=== PATIENT | female | born 1960 | race Caucasian/White ===

== ENCOUNTER 2017-10-21 00:57 | Emergency (ER) | payer MEDICAID ==
[~2017-10-21] VITALS: Ht 124.5 cm; Wt 50.0 kg
[~2017-10-21 00:57] MED LIST: ALBU2TAB4 PO; ALBU8HFA PO; ATOR10TA87 PO; BUDE10.22 INH; CYCL-1 PO; EST1T PO; LISI40TA4 PO; LORA0.5T PO; MAGN400C PO; MELO-100 PO; OXYC15TA88 PO
[2017-10-21 01:25] LABS: BASOPHILS # (AUTO) 0.1 X10'3 (0-0.2); EOSINOPHILS # (AUTO) 0.1 X10'3 (0-0.9); EOSINOPHILS % (AUTO) 0.8 % (0-6); HEMATOCRIT 40.5 % (35.0-45.0); HEMOGLOBIN 13.5 g/dl (12.0-16.0); LYMPHOCYTES # (AUTO) 2.9 X10'3 (1.1-4.8); LYMPHOCYTES % (AUTO) 39.4 % (21-51); MEAN CORPUSCULAR HGB CONC 33.3 % (33.0-36.5); MEAN CORPUSCULAR VOLUME 90.2 FL (78-98); MEAN PLATELET VOLUME 8.1 FL (7.4-10.4); MONOCYTES # (AUTO) 0.5 X10'3 (0-0.9); MONOCYTES % (AUTO) 7.2 % (2-12); NEUTROPHILS # (AUTO) 3.8 X10'3 (1.8-7.7); NEUTROPHILS % (AUTO) 51.6 % (42-75); PLATELET COUNT 224 X10'3 (140-440); RED BLOOD COUNT 4.49 X10'6 (4.20-5.60); WHITE BLOOD COUNT 7.4 X10'3 (4.5-11.0)
[2017-10-21 01:36] LABS: INR 0.9 INR; PARTIAL THROMBOPLASTIN TIME 23 SECONDS (22-32); PROTHROMBIN TIME 9.7 SECONDS (9.0-12.0)
[2017-10-21 01:39] LABS: ALANINE AMINOTRANSFERASE 34 U/L (12-78); ALBUMIN 3.5 G/DL (3.4-5.0); ALBUMIN/GLOBULIN RATIO 1.1 (1.1-1.5); ALKALINE PHOSPHATASE 57 IU/L (46-116); ANION GAP 7 (8-16); ASPARTATE AMINO TRANSFERASE 31 U/L (10-37); BILIRUBIN,TOTAL 0.3 MG/DL (0.1-1.0); BLOOD UREA NITROGEN 15 MG/DL (7-18); BUN/CREATININE RATIO 18.1 (6.6-38.0); CALCIUM 9.5 MG/DL (8.5-10.1); CHLORIDE 103 MMOL/L (99-107); CREATININE 0.83 MG/DL (0.40-0.90); GLUCOSE 110 MG/DL (70-104); POTASSIUM 3.9 MMOL/L (3.5-5.1); SODIUM 141 MMOL/L (135-145); TOTAL CARBON DIOXIDE 31.4 MMOL/L (24-32); TOTAL PROTEIN 6.7 G/DL (6.4-8.2); eGFR 71 ML/MIN
[2017-10-21 02:40] VITALS: BP 121/80
== END 2017-10-21 02:41 | disposition home or self-care (01) ==
LOC: ER 00:57
DX: R06.02 Shortness of breath (principal); J44.9 Chronic obstructive pulmonary disease, unspecified; E78.00 Pure hypercholesterolemia, unspecified; I10 Essential (primary) hypertension; Z90.49 Acquired absence of other specified parts of digestive tract; Z90.710 Acquired absence of both cervix and uterus; Z88.2 Allergy status to sulfonamides; Z79.899 Other long term (current) drug therapy; Z60.2 Problems related to living alone; Z59.0 Homelessness; Z56.0 Unemployment, unspecified
CPT/HCPCS: 36415; 71045; 80053; 84484; 85025; 85610; 85730; 93005; 99285

== ENCOUNTER 2018-10-13 03:03 | Inpatient (IN) | payer MEDICAID ==
[~2018-10-13] VITALS: Ht 154.9 cm; Wt 35.0 kg
[2018-10-13 03:47] LABS: BASOPHILS % (AUTO) 0.5 % (0-1); EOSINOPHILS # (AUTO) 0.1 X10'3 (0-0.9); EOSINOPHILS % (AUTO) 1.2 % (0-6); HEMOGLOBIN 14.6 g/dl (12.0-16.0); LYMPHOCYTES # (AUTO) 2.9 X10'3 (1.1-4.8); LYMPHOCYTES % (AUTO) 33.5 % (21-51); MEAN CORPUSCULAR HEMOGLOBIN 29.4 PG (27.0-31.0); MEAN CORPUSCULAR HGB CONC 33.2 g/dL (33.0-36.5); MEAN CORPUSCULAR VOLUME 88.6 FL (78-98); MEAN PLATELET VOLUME 7.7 FL (7.4-10.4); MONOCYTES # (AUTO) 0.8 X10'3 (0-0.9); MONOCYTES % (AUTO) 9.5 % (2-12); NEUTROPHILS # (AUTO) 4.8 X10'3 (1.8-7.7); NEUTROPHILS % (AUTO) 55.3 % (42-75); PLATELET COUNT 256 X10'3 (140-440); RED BLOOD COUNT 4.96 X10'6 (4.20-5.60); RED CELL DISTRIBUTION WIDTH 14.9 % (11.5-14.5); WHITE BLOOD COUNT 8.6 X10'3 (4.5-11.0)
[2018-10-13 03:53] LABS: PARTIAL THROMBOPLASTIN TIME 23 SECONDS (22-32)
[2018-10-13] MEDS ORDERED: albuterol 2.5 MG/3 ML nebule CONTNEB PRN (03:55)
[2018-10-13] MEDS ORDERED: magnesium 2GM in 50ml NS 50 ML IV ONE (03:55)
[2018-10-13] MEDS ORDERED: methylPREDNISolone sod succ 125mg/2ml vial IV ONE (03:55)
[2018-10-13 03:58] LABS: ALANINE AMINOTRANSFERASE 59 U/L (12-78); ALBUMIN 3.7 G/DL (3.4-5.0); ALBUMIN/GLOBULIN RATIO 1.1 (1.1-1.5); ALKALINE PHOSPHATASE 55 IU/L (46-116); ANION GAP 6 (8-16); ASPARTATE AMINO TRANSFERASE 63 U/L (10-37); BILIRUBIN,TOTAL 0.3 MG/DL (0.1-1.0); BLOOD UREA NITROGEN 14 MG/DL (7-18); CALCIUM 9.3 MG/DL (8.5-10.1); CHLORIDE 110 MMOL/L (99-107); CREATININE 1.17 MG/DL (0.40-0.90); GLUCOSE 92 MG/DL (70-104); POTASSIUM 4.2 MMOL/L (3.5-5.1); SODIUM 148 MMOL/L (135-145); TOTAL CARBON DIOXIDE 31.9 MMOL/L (24-32); TOTAL PROTEIN 7.1 G/DL (6.4-8.2); eGFR 47 ML/MIN
[2018-10-13 04:36] LABS: ABG BASE EXCESS 0.7 mmol/L (-2.0-3.0); ABG HCO3 27.4 mmol/L (22.0-26.0); ABG OXYGEN SATURATION 92.4 % (95-98); ABG PH (T) 7.346 (7.350-7.450); ABG PO2 (T) 65.5 mmHg (83-108); FCOHb 3.6 % (0.5-1.5); FLOW 2 L/min; FMetHb 0.1 % (0.3-1.12); PATIENT TEMPERATURE 36.6; RESPIRATORY RATE (OBSERVED) 20 b/min; TOTAL HEMOGLOBIN 14.3 G/dl (12.0-16.0)
[2018-10-13] MEDS ORDERED: magnesium hydroxide 30ml (MOM) UD suspension PO PRN (05:30)
[2018-10-13] MEDS ORDERED: magnesium Cl slow-release 64mg tablet PO PRN (05:30)
[2018-10-13] MEDS ORDERED: magnesium 4gm in 100ml NS 100 ML IV PRN (05:30)
[2018-10-13] MEDS ORDERED: magnesium 2GM in 50ml NS 50 ML IV PRN (05:30)
[2018-10-13] MEDS ORDERED: potassium CL 10mEq/100ml bag 100 ML IV PRN ×2 (05:30)
[2018-10-13] MEDS ORDERED: mag hydrox/Alum hydrox/simeth 30ml oral suspension PO PRN (05:30)
[2018-10-13] MEDS ORDERED: acetaminophen 325mg tablet PO PRN ×2 (05:30)
[2018-10-13] MEDS ORDERED: potassium Cl 20 mEq SR tablet PO PRN ×2 (05:30)
[2018-10-13] MEDS ORDERED: ondansetron/PF 4mg/2ml inj IV PRN (05:30)
[2018-10-13] MEDS ORDERED: ipratropium/albuterol 3ml nebule NEB PRN (06:05)
[2018-10-13] MEDS ORDERED: cyclobenzaprine 10mg tablet PO PRN (06:05)
[2018-10-13] MEDS ORDERED: naproxen 375mg tablet PO PRN (06:05)
--- NOTE | 2018-10-13 06:31 | NUR ---
ATTEMPTED TO CALL REPORT, RN UNAVAILABLE AT THIS TIME. WILL CALL BACK.
--- NOTE | 2018-10-13 07:00 | NUR ---
Patient in room [facility] 350. I have received report from Toribio GALLO and had the opportunity to ask questions and assume patient care.
[2018-10-13] MEDS: pantoprazole 40mg Tablet.DR PO SCH (07:30)
[2018-10-13] MEDS: ipratropium/albuterol 3ml nebule NEB SCH ×5 (07:34→23:56)
[2018-10-13] MEDS ORDERED: oxyCODONE IR 5mg (immed. release) tablet PO SCH (08:00)
[2018-10-13] MEDS ORDERED: lisinopril 20mg tablet PO SCH (08:00)
[2018-10-13] MEDS: K and/or MAG REPLACEMENT MC SCH (08:00)
[2018-10-13] MEDS: enoxaparin 30mg/0.3ml syringe SQ SCH (08:00)
[2018-10-13 08:04] VITALS: BP 139/79
[2018-10-13] MEDS: methylPREDNISolone sod succ/PF 40mg inj. IV SCH ×2 (09:32→20:20)
[2018-10-13] MEDS: azithromycin/NS 500mg/250ml 250 ML IV SCH (09:33)
[2018-10-13] MEDS ORDERED: PRED10TA23 PO (10:00)
[2018-10-13] MEDS ORDERED: UMEC1DIS PO (10:00)
[2018-10-13] MEDS ORDERED: ALEN35TA21 PO (10:00)
[2018-10-13] MEDS ORDERED: CHOL10002 PO (10:00)
[2018-10-13] MEDS ORDERED: ALBU2.5V12 NEB (10:00)
[2018-10-13] MEDS ORDERED: ALBU18HF2 INH (10:00)
[2018-10-13] MEDS ORDERED: BACL10TA PO (10:00)
[2018-10-13] MEDS ORDERED: NABU500T2 PO (10:00)
[2018-10-13] MEDS ORDERED: LISI10TA4 PO (10:00)
[2018-10-13] MEDS ORDERED: ESTR1TAB19 PO (10:00)
[2018-10-13 11:00] VITALS: BP 97/54
[2018-10-13] MEDS ORDERED: pneumococcal 23-VAL P-sac vacc 25 mcg/0.5ml vial IMVAC ONE (14:00)
[2018-10-13] MEDS: CefTRIAXone/D5W-Rocephin 1gm 50 ML IV SCH (14:21)
--- NOTE | 2018-10-13 18:01 | NUR ---
Malnutrition consult: Pt seen at bedside reports UBW 98 lbs although per documented wt hx using scaled weights only from September 2014 and July 2011 patient's wt ranges from 81-92 lbs. Pt reports 20 lb wt loss in 2 years, this is non-significant wt loss of 21% in two years. Pt currently on heart healthy diet meeting nutrient needs with 100% PO intake however pt reports difficulty preparing meals BUTTERMAKER CONTINUOUS CHURN d/t decreased energy r/t SOB, likely suboptimal PO intake BUTTERMAKER CONTINUOUS CHURN. Pt states she is in the process of reaching out to someone to help prepare meals at home. Pt with visible fat and muscle wasting meeting criteria for malnutrition, notified. Pt admit with COPD exacerbation and acute on chronic respiratory failure. Pt requested education and was provided with written and verbal COPD nutrition therapy education with RD contact information. Pt with food requests that were d/w dietary, see below. Pt denies food allergies and reports some difficulty chewing however denies need for texture modification at this time. LBM 10/12 per pt. Will continue to follow. Recommendations: 1) Continue with heart healthy diet 2) Double protein TID; ketchup x 2 and regular yogurt with breakfast; cottage cheese at lunch; pudding with dinner 3) Routine bowel care 4) Wt per rx Addendum: 10/13/18 at [address] Amended: Links added.
--- NOTE | 2018-10-13 18:30 | NUR ---
Problems reprioritized. Patient report given, questions answered & plan of care reviewed with Raad GALLO.
[2018-10-13 20:00] VITALS: BP 108/62
[2018-10-13] MEDS ORDERED: atorvastatin 10mg tablet PO SCH (21:00)
[2018-10-14] VITALS: BP 106/74
--- NOTE | 2018-10-14 02:31 | NUR ---
Patient in room [facility] 350. I have received report from Jhoan GALLO and had the opportunity to ask questions and assume patient care.
[2018-10-14] MEDS: ipratropium/albuterol 3ml nebule NEB SCH ×6 (03:46→23:30)
[2018-10-14 06:14] LABS: BASOPHILS % (AUTO) 0.2 % (0-1); EOSINOPHILS % (AUTO) 0 % (0-6); HEMATOCRIT 40.3 % (35.0-45.0); HEMOGLOBIN 13.2 g/dl (12.0-16.0); LYMPHOCYTES # (AUTO) 0.8 X10'3 (1.1-4.8); LYMPHOCYTES % (AUTO) 6.5 % (21-51); MEAN CORPUSCULAR HEMOGLOBIN 29.2 PG (27.0-31.0); MEAN CORPUSCULAR HGB CONC 32.7 g/dL (33.0-36.5); MEAN CORPUSCULAR VOLUME 89.1 FL (78-98); MEAN PLATELET VOLUME 8.3 FL (7.4-10.4); MONOCYTES # (AUTO) 0.7 X10'3 (0-0.9); MONOCYTES % (AUTO) 5.4 % (2-12); NEUTROPHILS # (AUTO) 10.8 X10'3 (1.8-7.7); NEUTROPHILS % (AUTO) 87.9 % (42-75); PLATELET COUNT 236 X10'3 (140-440); RED BLOOD COUNT 4.52 X10'6 (4.20-5.60); RED CELL DISTRIBUTION WIDTH 15.1 % (11.5-14.5); WHITE BLOOD COUNT 12.3 X10'3 (4.5-11.0)
--- NOTE | 2018-10-14 06:25 | NUR ---
Problems reprioritized. Patient report given, questions answered & plan of care reviewed with Jhoan RN.
[2018-10-14 06:30] LABS: ALBUMIN 3.2 G/DL (3.4-5.0); ANION GAP 8 (8-16); BLOOD UREA NITROGEN 15 MG/DL (7-18); BUN/CREATININE RATIO 15.5 (6.6-38.0); CALCIUM 9.1 MG/DL (8.5-10.1); CHLORIDE 104 MMOL/L (99-107); CREATININE 0.97 MG/DL (0.40-0.90); GLUCOSE 156 MG/DL (70-104); MAGNESIUM 1.7 MG/DL (1.5-2.4); POTASSIUM 4.5 MMOL/L (3.5-5.1); SODIUM 139 MMOL/L (135-145); TOTAL CARBON DIOXIDE 27.2 MMOL/L (24-32); eGFR 59 ML/MIN
--- NOTE | 2018-10-14 06:31 | NUR ---
Patient in room [facility] 350. I have received report from Raad GALLO and had the opportunity to ask questions and assume patient care.
[2018-10-14] MEDS: pantoprazole 40mg Tablet.DR PO SCH (07:30)
[2018-10-14] MEDS: K and/or MAG REPLACEMENT MC SCH (08:00)
[2018-10-14] MEDS: vitamin D (cholecalciferol) 1,000 unit tablet PO SCH (08:18)
[2018-10-14] MEDS: estradiol 1mg tablet PO SCH (08:19)
[2018-10-14] MEDS: lisinopril 10 MG tablet PO SCH (08:19)
[2018-10-14] MEDS: methylPREDNISolone sod succ/PF 40mg inj. IV SCH ×2 (08:20→19:26)
[2018-10-14] MEDS: azithromycin/NS 500mg/250ml 250 ML IV SCH (08:22)
[2018-10-14] MEDS: enoxaparin 30mg/0.3ml syringe SQ SCH (08:31)
[2018-10-14 11:00] VITALS: BP 118/80
[2018-10-14] MEDS: CefTRIAXone/D5W-Rocephin 1gm 50 ML IV SCH (13:28)
--- NOTE | 2018-10-14 18:20 | NUR ---
Patient in room [facility] 350. I have received report from Jhoan GALLO and had the opportunity to ask questions and assume patient care.
--- NOTE | 2018-10-14 18:30 | NUR ---
Problems reprioritized. Patient report given, questions answered & plan of care reviewed with JOSE LUIS GALLO.
[2018-10-14] MEDS: lactobacillus rhamnosus 10,000 MMU CELLS/CAPSULE PO SCH (19:26)
[2018-10-14] MEDS: acetaminophen w/codeine (30MG) #3 tablet PO PRN (19:38)
[2018-10-14 20:00] VITALS: BP 110/69
[2018-10-15] VITALS: BP 116/77
[2018-10-15] MEDS: ipratropium/albuterol 3ml nebule NEB SCH ×4 (03:42→14:40)
[2018-10-15 06:04] LABS: BASOPHILS % (AUTO) 0.2 % (0-1); EOSINOPHILS % (AUTO) 0 % (0-6); HEMATOCRIT 41.9 % (35.0-45.0); HEMOGLOBIN 13.9 g/dl (12.0-16.0); LYMPHOCYTES # (AUTO) 0.8 X10'3 (1.1-4.8); LYMPHOCYTES % (AUTO) 5.8 % (21-51); MEAN CORPUSCULAR HEMOGLOBIN 29.5 PG (27.0-31.0); MEAN CORPUSCULAR HGB CONC 33.2 g/dL (33.0-36.5); MEAN CORPUSCULAR VOLUME 88.8 FL (78-98); MEAN PLATELET VOLUME 8.8 FL (7.4-10.4); MONOCYTES # (AUTO) 0.6 X10'3 (0-0.9); MONOCYTES % (AUTO) 4.3 % (2-12); NEUTROPHILS # (AUTO) 12.1 X10'3 (1.8-7.7); NEUTROPHILS % (AUTO) 89.7 % (42-75); PLATELET COUNT 254 X10'3 (140-440); RED BLOOD COUNT 4.72 X10'6 (4.20-5.60); RED CELL DISTRIBUTION WIDTH 14.9 % (11.5-14.5); WHITE BLOOD COUNT 13.5 X10'3 (4.5-11.0)
[2018-10-15 06:10] LABS: ALBUMIN 3.4 G/DL (3.4-5.0); ANION GAP 11 (8-16); BLOOD UREA NITROGEN 20 MG/DL (7-18); BUN/CREATININE RATIO 21.3 (6.6-38.0); CALCIUM 9.8 MG/DL (8.5-10.1); CHLORIDE 102 MMOL/L (99-107); CREATININE 0.94 MG/DL (0.40-0.90); GLUCOSE 130 MG/DL (70-104); MAGNESIUM 1.7 MG/DL (1.5-2.4); POTASSIUM 4.2 MMOL/L (3.5-5.1); SODIUM 141 MMOL/L (135-145); TOTAL CARBON DIOXIDE 27.7 MMOL/L (24-32); eGFR 61 ML/MIN
[2018-10-15] MEDS: acetaminophen w/codeine (30MG) #3 tablet PO PRN ×2 (06:24→12:34)
--- NOTE | 2018-10-15 06:26 | NUR ---
Patient in room [facility] 350. I have received report from SABINO Shankar and had the opportunity to ask questions and assume patient care.
--- NOTE | 2018-10-15 06:42 | NUR ---
Problems reprioritized. Patient report given, questions answered & plan of care reviewed with Stefanie GALLO.
[2018-10-15 07:21] VITALS: BP 127/92
[2018-10-15] MEDS: pantoprazole 40mg Tablet.DR PO SCH (07:30)
[2018-10-15] MEDS ORDERED: azithromycin 250mg tablet PO SCH (08:00)
[2018-10-15] MEDS: K and/or MAG REPLACEMENT MC SCH (08:00)
[2018-10-15] MEDS: methylPREDNISolone sod succ/PF 40mg inj. IV SCH (08:44)
[2018-10-15] MEDS: lactobacillus rhamnosus 10,000 MMU CELLS/CAPSULE PO SCH (08:44)
[2018-10-15] MEDS: lisinopril 10 MG tablet PO SCH (08:48)
[2018-10-15] MEDS: vitamin D (cholecalciferol) 1,000 unit tablet PO SCH (08:48)
[2018-10-15] MEDS: estradiol 1mg tablet PO SCH (08:52)
[2018-10-15] MEDS: enoxaparin 30mg/0.3ml syringe SQ SCH (08:54)
[2018-10-15 11:00] VITALS: BP 130/88
[2018-10-15] MEDS ORDERED: CEFD300C3 PO (12:21)
[2018-10-15] MEDS: CefTRIAXone/D5W-Rocephin 1gm 50 ML IV SCH (13:39)
--- NOTE | 2018-10-16 15:20 | NUR ---
Pt d/c prior to RD visit for verbal malnutrition ed. Written malnutrition ed w/ RD contact information and ONS coupon mailed to pt home address. Addendum: 10/16/18 at [address] Amended: Links added.
== END 2018-10-15 16:15 | disposition home or self-care (01) | DRG 133 ==
LOC: ER 03:04 → SUR 3N 07:10 → CMPBEDREQ 07:34
PROVIDERS: ADMIT Hospitalist; ATTEND Hospitalist
PROC: 3E0234Z Introduction of Serum, Toxoid and Vaccine into Muscle, Percutaneous Approach (ICD-10-PCS; principal; 2018-10-13)
DX: J96.21 Acute and chronic respiratory failure with hypoxia (principal); N17.9 Acute kidney failure, unspecified; E87.0 Hyperosmolality and hypernatremia; J43.9 Emphysema, unspecified; Z99.81 Dependence on supplemental oxygen; E78.00 Pure hypercholesterolemia, unspecified; E78.5 Hyperlipidemia, unspecified; F17.200 Nicotine dependence, unspecified, uncomplicated; G89.29 Other chronic pain; M54.9 Dorsalgia, unspecified; F11.90 Opioid use, unspecified, uncomplicated; F41.9 Anxiety disorder, unspecified; Z60.2 Problems related to living alone; I10 Essential (primary) hypertension; Z59.0 Homelessness; Z87.11 Personal history of peptic ulcer disease; Z90.49 Acquired absence of other specified parts of digestive tract; Z90.710 Acquired absence of both cervix and uterus; Z23 Encounter for immunization; Z88.0 Allergy status to penicillin; Z98.51 Tubal ligation status; Z88.2 Allergy status to sulfonamides; Z79.899 Other long term (current) drug therapy; Z71.6 Tobacco abuse counseling
CPT/HCPCS: 36415; 36600; 71045; 80048; 80053; 82803; 83735; 84484; 85018; 85025; 85610; 85730; 87081; 90732; 93005; 94640; 94760; 96365; 96375; 99291; G0378; J0456; J0696; J1650; J2920; J2930; J3475

== ENCOUNTER 2018-11-28 06:28 | Inpatient (IN) | payer MEDICAID ==
[~2018-11-28] VITALS: Ht 154.9 cm; Wt 34.1 kg
[~2018-11-28 06:28] MED LIST changes: +ALBU18HF2 INH; +ALBU2.5V12 NEB; -ALBU2TAB4 PO; -ALBU8HFA PO; +ALEN35TA21 PO; -ATOR10TA87 PO; +BACL10TA PO; -BUDE10.22 INH; +CHOL10002 PO; -CYCL-1 PO; -EST1T PO; +ESTR1TAB19 PO; +LISI10TA4 PO; -LISI40TA4 PO; -LORA0.5T PO; -MAGN400C PO; -MELO-100 PO; +NABU500T2 PO; -OXYC15TA88 PO; +PRED10TA23 PO; +UMEC1DIS PO
[2018-11-28] MEDS ORDERED: methylPREDNISolone sod succ 125mg/2ml vial IV ONE ×2 (06:35→09:50)
[2018-11-28 07:30] LABS: BASOPHILS # (AUTO) 0.1 X10'3 (0-0.2); BASOPHILS % (AUTO) 0.6 % (0-1); EOSINOPHILS # (AUTO) 0.1 X10'3 (0-0.9); EOSINOPHILS % (AUTO) 1.2 % (0-6); HEMATOCRIT 42.7 % (35.0-45.0); HEMOGLOBIN 14.1 g/dl (12.0-16.0); LYMPHOCYTES # (AUTO) 3.3 X10'3 (1.1-4.8); LYMPHOCYTES % (AUTO) 27.4 % (21-51); MEAN CORPUSCULAR HEMOGLOBIN 29.9 PG (27.0-31.0); MEAN CORPUSCULAR HGB CONC 33.1 g/dL (33.0-36.5); MEAN CORPUSCULAR VOLUME 90.3 FL (78-98); MEAN PLATELET VOLUME 7.7 FL (7.4-10.4); MONOCYTES # (AUTO) 0.9 X10'3 (0-0.9); MONOCYTES % (AUTO) 7.2 % (2-12); NEUTROPHILS # (AUTO) 7.7 X10'3 (1.8-7.7); NEUTROPHILS % (AUTO) 63.6 % (42-75); PLATELET COUNT 255 X10'3 (140-440); RED BLOOD COUNT 4.73 X10'6 (4.20-5.60); WHITE BLOOD COUNT 12.1 X10'3 (4.5-11.0)
[2018-11-28 07:44] LABS: PARTIAL THROMBOPLASTIN TIME 22 SECONDS (22-32)
[2018-11-28 07:47] LABS: ALANINE AMINOTRANSFERASE 42 U/L (12-78); ALBUMIN 3.6 G/DL (3.4-5.0); ALKALINE PHOSPHATASE 58 IU/L (46-116); ANION GAP 6 (8-16); ASPARTATE AMINO TRANSFERASE 43 U/L (10-37); BILIRUBIN,TOTAL 0.3 MG/DL (0.1-1.0); BLOOD UREA NITROGEN 14 MG/DL (7-18); BUN/CREATININE RATIO 15.1 (6.6-38.0); CALCIUM 9.3 MG/DL (8.5-10.1); CHLORIDE 106 MMOL/L (99-107); CREATININE 0.93 MG/DL (0.40-0.90); GLUCOSE 100 MG/DL (70-104); POTASSIUM 3.7 MMOL/L (3.5-5.1); SODIUM 142 MMOL/L (135-145); TOTAL CARBON DIOXIDE 29.6 MMOL/L (24-32); TOTAL PROTEIN 7.1 G/DL (6.4-8.2); eGFR 62 ML/MIN
--- NOTE | 2018-11-28 08:48 | NUR ---
pt walked 250 ft on 2 liters of o2. pt dropped from 96% to 94% half way and the n by the time we got back to the room she was breathing heavy at 91% on [address] paulson
[2018-11-28] MEDS ORDERED: levoFLOXACIN 750MG TABLET PO ONE (09:05)
[2018-11-28] MEDS ORDERED: HYDROcodone/acetaminophen 5mg/325mg tablet PO PRN (09:10)
[2018-11-28] MEDS ORDERED: acetaminophen 325mg tablet PO PRN (09:10)
[2018-11-28] MEDS ORDERED: morphine 2 MG/ML inj. syringe IV PRN ×2 (09:10)
[2018-11-28] MEDS ORDERED: ondansetron/PF 4mg/2ml inj IV PRN (09:10)
[2018-11-28] MEDS ORDERED: magnesium hydroxide 30ml (MOM) UD suspension PO PRN (09:10)
[2018-11-28] MEDS: levoFLOXACIN-Levaquin 750MG/D5 150 ML IV SCH (10:15)
--- NOTE | 2018-11-28 10:59 | NUR ---
Patient in room ED 14. I have received report from SABINO Contreras in ER and had the opportunity to ask questions, awaiting patient arrival.
--- NOTE | 2018-11-28 11:25 | NUR ---
Pt arrived to floor. HR in 130s, pt requesting breathing treatment. Respiratory team paged for 1100 treatment to be given ANNAMARIE.
[2018-11-28 11:29] VITALS: BP 132/94
[2018-11-28] MEDS: ipratropium/albuterol 3ml nebule NEB SCH ×4 (11:35→23:35)
[2018-11-28] MEDS ORDERED: albuterol 2.5 MG/3 ML nebule NEB PRN (12:00)
[2018-11-28] MEDS: oxyCODONE IR 5mg (immed. release) tablet PO PRN ×2 (13:58→21:18)
[2018-11-28] MEDS ORDERED: AZIT250T83 PO (15:54)
[2018-11-28] MEDS ORDERED: NALO4SPR (15:54)
[2018-11-28] MEDS ORDERED: BUPR1PAT TOP (15:54)
[2018-11-28] MEDS ORDERED: FLUT1BLS4 PO (15:54)
[2018-11-28] MEDS: methylPREDNISolone sod succ 125mg/2ml vial IV SCH ×2 (16:24→23:37)
[2018-11-28] MEDS ORDERED: baclofen 10mg tablet PO PRN (18:20)
--- NOTE | 2018-11-28 18:20 | NUR ---
Patient in room [facility] 345. I have received report from Adele GALLO and had the opportunity to ask questions and assume patient care.
--- NOTE | 2018-11-28 18:29 | NUR ---
Problems reprioritized. Patient report given, questions answered & plan of care reviewed with SABINO Almazan.
[2018-11-28 19:00] VITALS: BP 125/72
[2018-11-28] MEDS: NABUMETONE PO SCH (19:20)
[2018-11-28] MEDS ORDERED: clonazePAM 0.5mg tablet PO SCH (20:00)
--- NOTE | 2018-11-28 21:04 | NUR ---
Patient states that she has never taken klonopin and does not want to. Pt. states she has taken ativan before. New order obtained to dc klonopin and to order ativan 1mg q6hr prn sob/anxiety in place of.
[2018-11-28] MEDS: lactobacillus rhamnosus 10,000 MMU CELLS/CAPSULE PO SCH (21:16)
[2018-11-28] MEDS: estradiol 1mg tablet PO SCH (21:17)
[2018-11-28] MEDS: vitamin D (cholecalciferol) 1,000 unit tablet PO SCH (21:17)
[2018-11-28] MEDS: LORazepam 1 MG tablet PO PRN (21:19)
[2018-11-29 00:33] VITALS: BP 104/63
[2018-11-29] MEDS: ipratropium/albuterol 3ml nebule NEB SCH ×6 (03:02→22:39)
[2018-11-29] MEDS: LORazepam 1 MG tablet PO PRN ×2 (03:23→16:29)
[2018-11-29 05:07] LABS: BASOPHILS % (AUTO) 0.1 % (0-1); EOSINOPHILS % (AUTO) 0 % (0-6); HEMATOCRIT 39.5 % (35.0-45.0); HEMOGLOBIN 13.3 g/dl (12.0-16.0); LYMPHOCYTES # (AUTO) 0.4 X10'3 (1.1-4.8); LYMPHOCYTES % (AUTO) 5.1 % (21-51); MEAN CORPUSCULAR HEMOGLOBIN 30.1 PG (27.0-31.0); MEAN CORPUSCULAR HGB CONC 33.6 g/dL (33.0-36.5); MEAN CORPUSCULAR VOLUME 89.7 FL (78-98); MEAN PLATELET VOLUME 8.2 FL (7.4-10.4); MONOCYTES # (AUTO) 0.1 X10'3 (0-0.9); MONOCYTES % (AUTO) 1.8 % (2-12); PLATELET COUNT 246 X10'3 (140-440); RED CELL DISTRIBUTION WIDTH 14.8 % (11.5-14.5); WHITE BLOOD COUNT 7.6 X10'3 (4.5-11.0)
[2018-11-29 05:24] LABS: ALBUMIN 3.4 G/DL (3.4-5.0); ANION GAP 8 (8-16); BLOOD UREA NITROGEN 18 MG/DL (7-18); BUN/CREATININE RATIO 14.8 (6.6-38.0); CALCIUM 9.5 MG/DL (8.5-10.1); CHLORIDE 102 MMOL/L (99-107); CREATININE 1.22 MG/DL (0.40-0.90); GLUCOSE 159 MG/DL (70-104); POTASSIUM 4.4 MMOL/L (3.5-5.1); SODIUM 139 MMOL/L (135-145); TOTAL CARBON DIOXIDE 29.2 MMOL/L (24-32); eGFR 45 ML/MIN
--- NOTE | 2018-11-29 07:03 | NUR ---
Problems reprioritized. Patient report given, questions answered & plan of care reviewed with Adele GALLO and Taylor GALLO.
[2018-11-29 07:30] VITALS: BP 120/65
[2018-11-29] MEDS: NABUMETONE PO SCH (08:00)
[2018-11-29] MEDS: lactobacillus rhamnosus 10,000 MMU CELLS/CAPSULE PO SCH ×2 (08:21→20:56)
[2018-11-29] MEDS: methylPREDNISolone sod succ 125mg/2ml vial IV SCH ×3 (08:21→23:49)
[2018-11-29] MEDS: levoFLOXACIN-Levaquin 750MG/D5 150 ML IV SCH (08:21)
[2018-11-29] MEDS: lisinopril 10 MG tablet PO SCH (08:22)
[2018-11-29] MEDS: oxyCODONE IR 5mg (immed. release) tablet PO PRN ×2 (08:25→20:56)
[2018-11-29] MEDS ORDERED: FLU VACC QS2019-20 36MOS UP/PF 60 MCG/0.5 ML SYRINGE IMVAC ONE (10:00)
[2018-11-29 11:00] VITALS: BP 114/76
--- NOTE | 2018-11-29 14:57 | NUR ---
Malnutrition consult: Pt seen at bedside reports UBW previously 98 lbs up until last year however UBW is now 72-78 lbs. Pt does not report any specific wt loss recently however states her weight has fluctuated over the last month. Patient's current wt is 75 lbs which is pt stated although pt recently admitted 10/13/18 with documented wt of 77 lbs which was obtained with standing scale. Pt endorses a vigorous appetite which is evident with documented 100% PO intake on regular diet exceeding nutrient needs. Pt with no edema, significant decrease in muscle strength, or visible fat/muscle wasting. Pt currently does not meet criteria for malnutrition. For satiety pt requesting double protein TID, regular yogurt TID, cottage cheese TID, coffee and iced tea TID, dessert BIDLD, and extra salt/pepper TID. All preferences d/w dietary. Pt states she has home services through [facility] however is in search for someone to help prepare meals as pt becomes SOB and loses energy to prepare meals, RD will consult SW for community resources. Pt provided with [facility] contact information. Will continue to follow. Addendum: 11/29/18 at [address] Amended: Links added.
--- NOTE | 2018-11-29 18:15 | NUR ---
Problems reprioritized. Patient report given, questions answered & plan of care reviewed with SABINO Almazan.
--- NOTE | 2018-11-29 18:25 | NUR ---
Patient in room [facility] 345. I have received report from Becky GALLO and had the opportunity to ask questions and assume patient care.
[2018-11-29 18:30] VITALS: BP 102/59
[2018-11-29] MEDS: vitamin D (cholecalciferol) 1,000 unit tablet PO SCH (20:56)
[2018-11-29] MEDS: estradiol 1mg tablet PO SCH (20:56)
[2018-11-29 23:00] VITALS: BP 103/60
[2018-11-29] MEDS: mag hydrox/Alum hydrox/simeth 30ml oral suspension PO PRN (23:57)
[2018-11-30] MEDS: ipratropium/albuterol 3ml nebule NEB SCH ×6 (03:01→22:41)
[2018-11-30 04:51] LABS: BASOPHILS % (AUTO) 0 % (0-1); EOSINOPHILS % (AUTO) 0 % (0-6); HEMATOCRIT 38.5 % (35.0-45.0); HEMOGLOBIN 12.7 g/dl (12.0-16.0); LYMPHOCYTES # (AUTO) 0.4 X10'3 (1.1-4.8); LYMPHOCYTES % (AUTO) 2.7 % (21-51); MEAN CORPUSCULAR HEMOGLOBIN 29.7 PG (27.0-31.0); MEAN CORPUSCULAR HGB CONC 33.1 g/dL (33.0-36.5); MEAN CORPUSCULAR VOLUME 89.8 FL (78-98); MEAN PLATELET VOLUME 8.1 FL (7.4-10.4); MONOCYTES # (AUTO) 0.3 X10'3 (0-0.9); NEUTROPHILS # (AUTO) 13.6 X10'3 (1.8-7.7); NEUTROPHILS % (AUTO) 95.3 % (42-75); PLATELET COUNT 249 X10'3 (140-440); RED BLOOD COUNT 4.28 X10'6 (4.20-5.60); RED CELL DISTRIBUTION WIDTH 14.8 % (11.5-14.5); WHITE BLOOD COUNT 14.2 X10'3 (4.5-11.0)
[2018-11-30 05:03] LABS: ALBUMIN 3.1 G/DL (3.4-5.0); ANION GAP 5 (8-16); BLOOD UREA NITROGEN 26 MG/DL (7-18); BUN/CREATININE RATIO 27.1 (6.6-38.0); CALCIUM 9.4 MG/DL (8.5-10.1); CHLORIDE 103 MMOL/L (99-107); CREATININE 0.96 MG/DL (0.40-0.90); GLUCOSE 133 MG/DL (70-104); POTASSIUM 4.5 MMOL/L (3.5-5.1); SODIUM 137 MMOL/L (135-145); TOTAL CARBON DIOXIDE 29.3 MMOL/L (24-32); eGFR 59 ML/MIN
--- NOTE | 2018-11-30 06:44 | NUR ---
Patient in room [facility] 345. I have received report from Norah GALLO and had the opportunity to ask questions and assume patient care.
--- NOTE | 2018-11-30 06:58 | NUR ---
Problems reprioritized. Patient report given, questions answered & plan of care reviewed with Austin GALLO.
[2018-11-30 07:00] VITALS: BP 128/69
[2018-11-30] MEDS: oxyCODONE IR 5mg (immed. release) tablet PO PRN ×2 (07:51→19:25)
[2018-11-30] MEDS: methylPREDNISolone sod succ 125mg/2ml vial IV SCH ×2 (07:51→16:33)
[2018-11-30] MEDS: lactobacillus rhamnosus 10,000 MMU CELLS/CAPSULE PO SCH ×2 (07:52→19:22)
[2018-11-30] MEDS: enoxaparin 30mg/0.3ml syringe SUBCUT SCH (07:52)
[2018-11-30] MEDS: lisinopril 10 MG tablet PO SCH (07:52)
[2018-11-30] MEDS: LORazepam 1 MG tablet PO PRN ×2 (08:37→16:38)
--- NOTE | 2018-11-30 08:37 | NUR ---
Patient states " I might be allergic to the heparin shot that was given to me (patient received Lovenox this am)!" When I asked the patient what reaction she had, she said to me that she was feeling "tightness in her throat and difficulty swallowing". Patient also claimed that previous dose of Lovenox caused her feeling of "spasm in her abdomen". Patient's lung sounds were clear upon auscultation, O2 sat was 95-96% on 2lpm/nc. I did not see any rashes or hives, patient denies itchiness too. 5-10 minutes after, patient stated she is short of breath, reassessment done - O2 sat 94-95% on 2lpm/nc, lung sounds remain clear. Heart rate was 120's, patient appears anxious. Ativan PO given to patient as indicated.
--- NOTE | 2018-11-30 09:44 | NUR ---
Patient reported feeling better after the dose of Ativan given to her. Physical therapist at bedside too.
[2018-11-30 11:00] VITALS: BP 145/87
[2018-11-30] MEDS ORDERED: levoFLOXACIN 750MG TABLET PO SCH (11:00)
[2018-11-30] MEDS: levoFLOXACIN 750MG TABLET PO SCH (13:05)
[2018-11-30] MEDS: mag hydrox/Alum hydrox/simeth 30ml oral suspension PO PRN ×2 (13:08→19:22)
--- NOTE | 2018-11-30 14:04 | NUR ---
Called Dr. Ribeiro about patient's request to use her own inhaler Trelegy. I also let him know about patient's concern about taking Lovenox. Dr. Ribeiro okayed to have patient use her own inhaler Trelegy and also stated that patient can refuse Lovenox injection if she wants too
--- NOTE | 2018-11-30 14:59 | NUR ---
Patient was found by Kemar GALLO right by the elevator getting ready to leave. Patient has no oxygen with her, she is oxygen dependent. Patient was wheeled down by the staff and immediately placed on oxygen at 2lpm/nc as she appears short of breath. When asked what happened, patient states "I just need to go out!" Patient was advised not to go outside as it is not allowed. Patient was informed that she can go for a walk within the third floor unit with a staff member as she will be needing help walking with portable oxygen with her. Patient claimed that she just wanted to get fresh air outside for like 10 minutes. Patient was told that we are not holding her against her will. Patient was told that if she leave the building it is considered AMA. Initially patient stated she will be willing to sign the AMA form but when explained to patient that she will be discharged from our unit, that she will be taking all the possible risks, and if she has medical issues she will probably be going back to ER, patient declined to sign the AMA form. She was obviously upset about unable to go outside the unit and/or building, she immediately turned her back, wheeled herself back to the room while she is connected to the portable oxygen. I had to immediately push the portable oxygen to her so the tank won't fall on the ground. I was talking to her if I can get her a gown as she removed her gown, patient was not answering my question and won't even looked at me. Charge nurse Yoko aware of this situation.
--- NOTE | 2018-11-30 18:26 | NUR ---
Patient in room [facility] 345. I have received report from Austin GALLO and had the opportunity to ask questions and assume patient care. Pt is sitting up in bed eating dinner with wash cloth on her head. Complains of mild headache. O2 on via N/C @2L. No signs of distress, will continue to monitor.
--- NOTE | 2018-11-30 18:55 | NUR ---
Problems reprioritized. Patient report given, questions answered & plan of care reviewed with Pricila GALLO.
[2018-11-30 19:13] VITALS: BP 133/81
[2018-11-30] MEDS: vitamin D (cholecalciferol) 1,000 unit tablet PO SCH (21:00)
[2018-11-30] MEDS: estradiol 1mg tablet PO SCH (22:33)
[2018-11-30] MEDS: docusate sod 100mg capsule PO SCH (22:33)
[2018-12-01] VITALS: BP 138/73
[2018-12-01] MEDS: methylPREDNISolone sod succ 125mg/2ml vial IV SCH ×3 (00:20→16:36)
[2018-12-01] MEDS: ipratropium/albuterol 3ml nebule NEB SCH ×6 (03:06→23:36)
[2018-12-01] MEDS: LORazepam 1 MG tablet PO PRN (04:33)
[2018-12-01] MEDS: oxyCODONE IR 5mg (immed. release) tablet PO PRN ×2 (04:33→22:14)
[2018-12-01 04:41] LABS: ALBUMIN 3.2 G/DL (3.4-5.0); ANION GAP 7 (8-16); BASOPHILS % (AUTO) 0.1 % (0-1); BLOOD UREA NITROGEN 28 MG/DL (7-18); BUN/CREATININE RATIO 30.1 (6.6-38.0); CHLORIDE 102 MMOL/L (99-107); CREATININE 0.93 MG/DL (0.40-0.90); EOSINOPHILS % (AUTO) 0 % (0-6); GLUCOSE 106 MG/DL (70-104); HEMATOCRIT 39.1 % (35.0-45.0); HEMOGLOBIN 13.1 g/dl (12.0-16.0); LYMPHOCYTES # (AUTO) 0.6 X10'3 (1.1-4.8); LYMPHOCYTES % (AUTO) 4.1 % (21-51); MEAN CORPUSCULAR HEMOGLOBIN 29.9 PG (27.0-31.0); MEAN CORPUSCULAR HGB CONC 33.5 g/dL (33.0-36.5); MEAN PLATELET VOLUME 8.3 FL (7.4-10.4); MONOCYTES # (AUTO) 0.7 X10'3 (0-0.9); MONOCYTES % (AUTO) 4.6 % (2-12); NEUTROPHILS # (AUTO) 12.9 X10'3 (1.8-7.7); NEUTROPHILS % (AUTO) 91.2 % (42-75); PLATELET COUNT 263 X10'3 (140-440); POTASSIUM 4.2 MMOL/L (3.5-5.1); RED BLOOD COUNT 4.39 X10'6 (4.20-5.60); RED CELL DISTRIBUTION WIDTH 15.3 % (11.5-14.5); SODIUM 137 MMOL/L (135-145); TOTAL CARBON DIOXIDE 28.4 MMOL/L (24-32); WHITE BLOOD COUNT 14.1 X10'3 (4.5-11.0); eGFR 62 ML/MIN
--- NOTE | 2018-12-01 06:05 | NUR ---
Patient in room [facility] 345. I have received report from SABINO Mcnulty and had the opportunity to ask questions and assume patient care.
[2018-12-01 06:30] VITALS: BP 141/89
--- NOTE | 2018-12-01 06:45 | NUR ---
Problems reprioritized. Patient report given, questions answered & plan of care reviewed with Jennifer RN.
[2018-12-01] MEDS ORDERED: furosemide 20 MG/2 ML vial IV ONE (08:50)
[2018-12-01] MEDS: lactobacillus rhamnosus 10,000 MMU CELLS/CAPSULE PO SCH ×2 (09:23→20:47)
[2018-12-01] MEDS: enoxaparin 30mg/0.3ml syringe SUBCUT SCH (09:23)
[2018-12-01] MEDS: docusate sod 100mg capsule PO SCH ×2 (09:23→20:47)
[2018-12-01] MEDS: lisinopril 10 MG tablet PO SCH (09:24)
[2018-12-01 11:00] VITALS: BP 139/98
--- NOTE | 2018-12-01 14:16 | NUR ---
Initial: Pt admit with COPD exacerbation. Pt feels that SOB has worsened per MD notes. Pt currently on regular diet documented with 100% PO intake throughout LOS with the exception of 50% PO intake 11/30. Pt also receiving extra food TID, likely meeting nutrient needs at this time. LBM 11/27, routine Colace was just started last night with MoM PRN first dose given today. No nutrition diagnosis at this time. Will continue to follow. Recommendations: 1) Continue with regular diet 2) Double protein TID, regular yogurt TID, cottage cheese TID, coffee and iced tea TID, dessert BIDLD, and extra salt/pepper TID 3) Routine bowel care 4) Wt per rx Addendum: 12/01/18 at [address] Amended: Links added.
--- NOTE | 2018-12-01 18:00 | NUR ---
Patient in room [facility] 345. I have received report from Jennifer GALLO and had the opportunity to ask questions and assume patient care.
--- NOTE | 2018-12-01 18:10 | NUR ---
Problems reprioritized. Patient report given, questions answered & plan of care reviewed with SABINO Shankar.
[2018-12-01 20:00] VITALS: BP 165/104
[2018-12-01] MEDS: vitamin D (cholecalciferol) 1,000 unit tablet PO SCH (20:48)
[2018-12-01] MEDS: furosemide 20 MG/2 ML vial IV SCH (20:48)
[2018-12-01] MEDS: estradiol 1mg tablet PO SCH (20:50)
[2018-12-02] VITALS: BP 171/95
[2018-12-02] MEDS: methylPREDNISolone sod succ 125mg/2ml vial IV SCH ×3 (00:09→16:44)
[2018-12-02 01:00] VITALS: BP 148/90
[2018-12-02] MEDS: ipratropium/albuterol 3ml nebule NEB SCH ×6 (03:40→23:00)
[2018-12-02] MEDS: oxyCODONE IR 5mg (immed. release) tablet PO PRN ×2 (05:00→19:54)
[2018-12-02 05:19] LABS: BASOPHILS % (AUTO) 0 % (0-1); EOSINOPHILS % (AUTO) 0 % (0-6); HEMATOCRIT 39.3 % (35.0-45.0); HEMOGLOBIN 13.1 g/dl (12.0-16.0); LYMPHOCYTES # (AUTO) 0.4 X10'3 (1.1-4.8); LYMPHOCYTES % (AUTO) 3.7 % (21-51); MEAN CORPUSCULAR HGB CONC 33.3 g/dL (33.0-36.5); MEAN PLATELET VOLUME 8.3 FL (7.4-10.4); MONOCYTES # (AUTO) 0.3 X10'3 (0-0.9); MONOCYTES % (AUTO) 2.7 % (2-12); NEUTROPHILS # (AUTO) 9.3 X10'3 (1.8-7.7); NEUTROPHILS % (AUTO) 93.6 % (42-75); PLATELET COUNT 243 X10'3 (140-440); RED BLOOD COUNT 4.37 X10'6 (4.20-5.60); WHITE BLOOD COUNT 9.9 X10'3 (4.5-11.0)
[2018-12-02 05:41] LABS: ALBUMIN 3.2 G/DL (3.4-5.0); ANION GAP 4 (8-16); BLOOD UREA NITROGEN 34 MG/DL (7-18); BUN/CREATININE RATIO 34.7 (6.6-38.0); CALCIUM 9.2 MG/DL (8.5-10.1); CHLORIDE 99 MMOL/L (99-107); CREATININE 0.98 MG/DL (0.40-0.90); GLUCOSE 112 MG/DL (70-104); POTASSIUM 4.4 MMOL/L (3.5-5.1); SODIUM 136 MMOL/L (135-145); TOTAL CARBON DIOXIDE 32.8 MMOL/L (24-32); eGFR 58 ML/MIN
--- NOTE | 2018-12-02 06:27 | NUR ---
Patient in room [facility] 345. I have received report from Raad GALLO and had the opportunity to ask questions and assume patient care.
--- NOTE | 2018-12-02 06:30 | NUR ---
Problems reprioritized. Patient report given, questions answered & plan of care reviewed with Austin GALLO.
[2018-12-02 07:00] VITALS: BP 145/90
[2018-12-02] MEDS: furosemide 20 MG/2 ML vial IV SCH ×2 (07:13→19:50)
[2018-12-02] MEDS: docusate sod 100mg capsule PO SCH ×2 (07:14→19:58)
[2018-12-02] MEDS: lactobacillus rhamnosus 10,000 MMU CELLS/CAPSULE PO SCH ×2 (07:14→19:50)
[2018-12-02] MEDS: lisinopril 10 MG tablet PO SCH (07:14)
[2018-12-02] MEDS: enoxaparin 30mg/0.3ml syringe SUBCUT SCH ×2 (07:15→13:11)
--- NOTE | 2018-12-02 07:17 | NUR ---
Per report I got this am, patient smoked in the room as the room smelled cigarette. Offered patient to start her on Nicotine patch to prevent craving, patient states "No, I don't want it!" I also reminded patient that this is a non-smoking facility. Addendum: 12/02/18 at 0720 by Austin Leahy RN Clarification: Per report, patient smoked yesterday during the day shift
[2018-12-02 11:00] VITALS: BP 155/94
[2018-12-02] MEDS: levoFLOXACIN 750MG TABLET PO SCH (11:18)
[2018-12-02] MEDS: LORazepam 1 MG tablet PO PRN (12:45)
--- NOTE | 2018-12-02 13:08 | NUR ---
Patient requested her Lovenox back after she refused it this am. She states "my throat is not tightening now when I did not got the Lovenox!'
--- NOTE | 2018-12-02 15:39 | NUR ---
NO ABGS WITH BIPAP PER DR. WORTHY
--- NOTE | 2018-12-02 18:00 | NUR ---
Patient in room [facility] 345. I have received report from Austin GALLO and had the opportunity to ask questions and assume patient care.
--- NOTE | 2018-12-02 18:26 | NUR ---
Problems reprioritized. Patient report given, questions answered & plan of care reviewed with Raad GALLO.
[2018-12-02] MEDS: estradiol 1mg tablet PO SCH (19:49)
[2018-12-02] MEDS: vitamin D (cholecalciferol) 1,000 unit tablet PO SCH (19:50)
[2018-12-02 20:00] VITALS: BP 129/85
[2018-12-03] VITALS: BP 126/82
[2018-12-03] MEDS: methylPREDNISolone sod succ 125mg/2ml vial IV SCH ×3 (00:09→21:01)
[2018-12-03] MEDS: ipratropium/albuterol 3ml nebule NEB SCH ×6 (03:12→22:30)
[2018-12-03] MEDS: oxyCODONE IR 5mg (immed. release) tablet PO PRN ×2 (03:45→15:41)
[2018-12-03 06:03] LABS: BASOPHILS % (AUTO) 0.1 % (0-1); EOSINOPHILS % (AUTO) 0 % (0-6); HEMATOCRIT 42.1 % (35.0-45.0); LYMPHOCYTES # (AUTO) 0.5 X10'3 (1.1-4.8); LYMPHOCYTES % (AUTO) 3.9 % (21-51); MEAN CORPUSCULAR HGB CONC 33.4 g/dL (33.0-36.5); MEAN CORPUSCULAR VOLUME 89.8 FL (78-98); MEAN PLATELET VOLUME 8.1 FL (7.4-10.4); MONOCYTES # (AUTO) 0.5 X10'3 (0-0.9); MONOCYTES % (AUTO) 4.5 % (2-12); NEUTROPHILS # (AUTO) 10.6 X10'3 (1.8-7.7); NEUTROPHILS % (AUTO) 91.5 % (42-75); PLATELET COUNT 293 X10'3 (140-440); RED BLOOD COUNT 4.69 X10'6 (4.20-5.60); RED CELL DISTRIBUTION WIDTH 14.8 % (11.5-14.5); WHITE BLOOD COUNT 11.6 X10'3 (4.5-11.0)
--- NOTE | 2018-12-03 06:32 | NUR ---
Problems reprioritized. Patient report given, questions answered & plan of care reviewed with Dolores GALLO.
[2018-12-03 06:36] LABS: ALBUMIN 3.4 G/DL (3.4-5.0); ANION GAP 5 (8-16); BLOOD UREA NITROGEN 33 MG/DL (7-18); BUN/CREATININE RATIO 40.2 (6.6-38.0); CALCIUM 9.5 MG/DL (8.5-10.1); CHLORIDE 97 MMOL/L (99-107); CREATININE 0.82 MG/DL (0.40-0.90); GLUCOSE 100 MG/DL (70-104); POTASSIUM 4.3 MMOL/L (3.5-5.1); SODIUM 136 MMOL/L (135-145); TOTAL CARBON DIOXIDE 33.6 MMOL/L (24-32); eGFR 71 ML/MIN
[2018-12-03 07:00] VITALS: BP 136/84
--- NOTE | 2018-12-03 07:04 | NUR ---
Patient in room [facility] 345. I have received report from Raad GALLO and had the opportunity to ask questions and assume patient care.
[2018-12-03] MEDS: lisinopril 10 MG tablet PO SCH (07:41)
[2018-12-03] MEDS: furosemide 20 MG/2 ML vial IV SCH ×2 (07:41→21:00)
[2018-12-03] MEDS: lactobacillus rhamnosus 10,000 MMU CELLS/CAPSULE PO SCH ×2 (07:42→21:00)
[2018-12-03] MEDS: docusate sod 100mg capsule PO SCH ×2 (07:42→20:00)
[2018-12-03] MEDS: enoxaparin 30mg/0.3ml syringe SUBCUT SCH (07:43)
[2018-12-03 12:00] VITALS: BP 130/85
[2018-12-03] MEDS: nystatin 500,000 unit/5ML UD oral suspension PO SCH ×2 (13:56→21:01)
--- NOTE | 2018-12-03 18:19 | NUR ---
Problems reprioritized. Patient report given, questions answered & plan of care reviewed with Raad GALLO.
--- NOTE | 2018-12-03 18:27 | NUR ---
Patient in room [facility] 345. I have received report from Dolores GALLO and had the opportunity to ask questions and assume patient care.
[2018-12-03 20:00] VITALS: BP 144/79
[2018-12-03] MEDS: estradiol 1mg tablet PO SCH (21:00)
[2018-12-03] MEDS: vitamin D (cholecalciferol) 1,000 unit tablet PO SCH (21:00)
[2018-12-03] MEDS: LORazepam 1 MG tablet PO PRN (23:33)
[2018-12-04] VITALS: BP 148/91
[2018-12-04] MEDS: ipratropium/albuterol 3ml nebule NEB SCH ×4 (02:22→14:45)
--- NOTE | 2018-12-04 06:29 | NUR ---
Problems reprioritized. Patient report given, questions answered & plan of care reviewed with Dolores GALLO.
[2018-12-04 07:00] VITALS: BP 127/81
[2018-12-04] MEDS: docusate sod 100mg capsule PO SCH (08:00)
[2018-12-04] MEDS: lisinopril 10 MG tablet PO SCH (08:30)
[2018-12-04] MEDS: furosemide 20 MG/2 ML vial IV SCH (08:30)
[2018-12-04] MEDS: lactobacillus rhamnosus 10,000 MMU CELLS/CAPSULE PO SCH (08:30)
[2018-12-04] MEDS: methylPREDNISolone sod succ 125mg/2ml vial IV SCH (08:30)
[2018-12-04] MEDS: enoxaparin 30mg/0.3ml syringe SUBCUT SCH (08:31)
[2018-12-04] MEDS: oxyCODONE IR 5mg (immed. release) tablet PO PRN (08:39)
[2018-12-04] MEDS: nystatin 500,000 unit/5ML UD oral suspension PO SCH ×2 (08:40→12:30)
[2018-12-04 11:00] VITALS: BP 108/75
[2018-12-04] MEDS: levoFLOXACIN 750MG TABLET PO SCH (11:45)
[2018-12-04] MEDS ORDERED: PRED10TA23 PO (17:15)
[2018-12-04] MEDS ORDERED: LACT1CAP26 PO (17:15)
[2018-12-04] MEDS ORDERED: LEVO750T46 PO (17:15)
[2018-12-04] MEDS ORDERED: BUDE10.22 INH (17:15)
[2018-12-04] MEDS ORDERED: NYST1000 PO (17:15)
--- NOTE | 2018-12-04 18:29 | NUR ---
Problems reprioritized. Patient report given, questions answered & plan of care reviewed with Matt GALLO.
--- NOTE | 2018-12-04 19:15 | NUR ---
PT DISCHARGED VIA W/C TO PRIVATE VEHICLE AFTER D/C INSTRUCTIONS BY PCT
== END 2018-12-04 19:15 | disposition home or self-care (01) | DRG 194 ==
LOC: ER 06:28 → ED HOLD 09:33 → SUR 3N 11:08
PROVIDERS: ADMIT Internal Medicine; ATTEND Family Medicine
DX: I11.0 Hypertensive heart disease with heart failure (principal); E43 Unspecified severe protein-calorie malnutrition; J96.11 Chronic respiratory failure with hypoxia; J43.9 Emphysema, unspecified; I50.9 Heart failure, unspecified; J20.9 Acute bronchitis, unspecified; M54.9 Dorsalgia, unspecified; Z60.2 Problems related to living alone; E78.00 Pure hypercholesterolemia, unspecified; I50.813 Acute on chronic right heart failure; F41.9 Anxiety disorder, unspecified; G89.4 Chronic pain syndrome; Z80.9 Family history of malignant neoplasm, unspecified; Z87.11 Personal history of peptic ulcer disease; Z87.891 Personal history of nicotine dependence; Z90.49 Acquired absence of other specified parts of digestive tract; Z79.899 Other long term (current) drug therapy; Z88.2 Allergy status to sulfonamides; Z90.710 Acquired absence of both cervix and uterus; Z59.0 Homelessness; Z98.51 Tubal ligation status; Z56.0 Unemployment, unspecified; Z68.1 Body mass index [BMI] 19.9 or less, adult
CPT/HCPCS: 36415; 71045; 80048; 80053; 83605; 83880; 84145; 84484; 85025; 85610; 85730; 87081; 93005; 94640; 94660; 94667; 94668; 94760; 97116; 97161; 97530; G0378; J1650; J1940; J1956; J2930; Q2037

== ENCOUNTER 2018-12-05 23:23 | Emergency (ER) | payer MEDICAID ==
[~2018-12-05] VITALS: Ht 154.9 cm; Wt 36.0 kg
[~2018-12-05 23:23] MED LIST changes: +BUDE10.22 INH; +BUPR1PAT TOP; +FLUT1BLS4 PO; +LACT1CAP26 PO; +LEVO750T46 PO; +NALO4SPR; +NYST1000 PO; -UMEC1DIS PO
[2018-12-05 23:40] LABS: BASOPHILS % (AUTO) 0.3 % (0-1); EOSINOPHILS % (AUTO) 0 % (0-6); HEMATOCRIT 43.1 % (35.0-45.0); HEMOGLOBIN 14.5 g/dl (12.0-16.0); LYMPHOCYTES # (AUTO) 0.7 X10'3 (1.1-4.8); LYMPHOCYTES % (AUTO) 5.3 % (21-51); MEAN CORPUSCULAR HEMOGLOBIN 29.8 PG (27.0-31.0); MEAN CORPUSCULAR HGB CONC 33.6 g/dL (33.0-36.5); MEAN CORPUSCULAR VOLUME 88.7 FL (78-98); MEAN PLATELET VOLUME 7.9 FL (7.4-10.4); MONOCYTES # (AUTO) 0.3 X10'3 (0-0.9); MONOCYTES % (AUTO) 2.4 % (2-12); NEUTROPHILS # (AUTO) 12.7 X10'3 (1.8-7.7); PLATELET COUNT 342 X10'3 (140-440); RED BLOOD COUNT 4.86 X10'6 (4.20-5.60); RED CELL DISTRIBUTION WIDTH 15.3 % (11.5-14.5); WHITE BLOOD COUNT 13.8 X10'3 (4.5-11.0)
[2018-12-05] MEDS ORDERED: LORazepam 2 mg/ml vial IV ONE (23:45)
[2018-12-05 23:53] LABS: ALANINE AMINOTRANSFERASE 301 U/L (12-78); ALBUMIN 3.3 G/DL (3.4-5.0); ALBUMIN/GLOBULIN RATIO 0.9 (1.1-1.5); ALKALINE PHOSPHATASE 55 IU/L (46-116); ANION GAP 8 (8-16); ASPARTATE AMINO TRANSFERASE 151 U/L (10-37); BILIRUBIN,TOTAL 0.2 MG/DL (0.1-1.0); BLOOD UREA NITROGEN 40 MG/DL (7-18); BUN/CREATININE RATIO 35.1 (6.6-38.0); CALCIUM 8.4 MG/DL (8.5-10.1); CHLORIDE 105 MMOL/L (99-107); CREATININE 1.14 MG/DL (0.40-0.90); GLUCOSE 143 MG/DL (70-104); POTASSIUM 4.5 MMOL/L (3.5-5.1); SODIUM 142 MMOL/L (135-145); TOTAL CARBON DIOXIDE 28.7 MMOL/L (24-32); TOTAL PROTEIN 6.8 G/DL (6.4-8.2); eGFR 49 ML/MIN
[2018-12-05 23:56] LABS: PARTIAL THROMBOPLASTIN TIME 21 SECONDS (22-32)
[2018-12-06] MEDS ORDERED: LORA2TAB96 PO (00:06)
[2018-12-06 00:24] VITALS: BP 134/94
== END 2018-12-06 00:27 | disposition home or self-care (01) ==
LOC: ER 23:23
DX: R06.02 Shortness of breath (principal); F41.9 Anxiety disorder, unspecified; E78.00 Pure hypercholesterolemia, unspecified; I10 Essential (primary) hypertension; J44.9 Chronic obstructive pulmonary disease, unspecified; Z59.0 Homelessness; Z56.0 Unemployment, unspecified; Z90.49 Acquired absence of other specified parts of digestive tract; Z90.710 Acquired absence of both cervix and uterus; Z98.51 Tubal ligation status; Z87.11 Personal history of peptic ulcer disease; Z88.2 Allergy status to sulfonamides; Z79.899 Other long term (current) drug therapy
CPT/HCPCS: 36415; 71045; 80053; 84484; 85025; 85610; 85730; 93005; 96374; 99284; J2060

== ENCOUNTER 2019-02-12 03:45 | Emergency (ER) | payer MEDICAID ==
[~2019-02-12] VITALS: Ht 152.4 cm; Wt 35.5 kg
[~2019-02-12 03:45] MED LIST changes: -FLUT1BLS4 PO; +LORA2TAB96 PO; -PRED10TA23 PO
[2019-02-12] MEDS ORDERED: albuterol 2.5 MG/3 ML nebule NEB ONE (03:55)
[2019-02-12] MEDS ORDERED: naproxen 500mg tablet PO ONE (03:55)
[2019-02-12] MEDS ORDERED: HYDROcodone/acetaminophen 5mg/325mg tablet PO ONE (03:55)
--- NOTE | 2019-02-12 04:26 | NUR ---
Adm pain medications. Pt to radiology via ash.
[2019-02-12] MEDS ORDERED: dexamethasone 4mg tablet PO ONE (04:55)
[2019-02-12] MEDS ORDERED: oxyCODONE SR 10mg (sust. release) tab PO ONE (04:55)
[2019-02-12] MEDS ORDERED: HYDR-4353 PO (04:57)
[2019-02-12] MEDS ORDERED: NAPR-56 PO (04:57)
[2019-02-12 05:28] VITALS: BP 131/78
== END 2019-02-12 05:30 | disposition home or self-care (01) ==
LOC: ER 03:46
DX: S22.32XA Fracture of one rib, left side, initial encounter for closed fracture (principal); J44.9 Chronic obstructive pulmonary disease, unspecified; E78.00 Pure hypercholesterolemia, unspecified; I10 Essential (primary) hypertension; Z90.49 Acquired absence of other specified parts of digestive tract; Z90.710 Acquired absence of both cervix and uterus; Z98.51 Tubal ligation status; Z60.2 Problems related to living alone; Z59.0 Homelessness; Z56.0 Unemployment, unspecified; Z87.891 Personal history of nicotine dependence; Z99.81 Dependence on supplemental oxygen; Z88.2 Allergy status to sulfonamides; Z79.899 Other long term (current) drug therapy; X58.XXXA Exposure to other specified factors, initial encounter; Y93.89 Activity, other specified; Y92.89 Other specified places as the place of occurrence of the external cause; Y99.8 Other external cause status
CPT/HCPCS: 71101; 93005; 94640; 94760; 99284

== ENCOUNTER 2019-02-17 16:07 | Emergency (ER) | payer MEDICAID ==
[~2019-02-17] VITALS: Ht 152.4 cm; Wt 35.5 kg
[~2019-02-17 16:07] MED LIST changes: +HYDR-4353 PO; +NAPR-56 PO
[2019-02-17] MEDS ORDERED: HYDR-4383 PO (17:19)
[2019-02-17 17:34] VITALS: BP 124/71
[2019-02-17] MEDS ORDERED: LIDO700A32 TOP (17:39)
== END 2019-02-17 17:47 | disposition home or self-care (01) ==
LOC: ER 16:07
DX: R07.81 Pleurodynia (principal); E78.00 Pure hypercholesterolemia, unspecified; J44.9 Chronic obstructive pulmonary disease, unspecified; I10 Essential (primary) hypertension; Z90.49 Acquired absence of other specified parts of digestive tract; Z90.710 Acquired absence of both cervix and uterus; Z98.51 Tubal ligation status; Z60.2 Problems related to living alone; Z59.0 Homelessness; Z56.0 Unemployment, unspecified; Z88.2 Allergy status to sulfonamides; Z79.899 Other long term (current) drug therapy
CPT/HCPCS: 99283

== ENCOUNTER 2019-02-28 03:14 | Emergency (ER) | payer MEDICAID ==
[~2019-02-28] VITALS: Ht 152.4 cm; Wt 35.5 kg
[~2019-02-28 03:14] MED LIST changes: -HYDR-4353 PO; +HYDR-4383 PO; +LIDO700A32 TOP
[2019-02-28] MEDS ORDERED: ipratropium/albuterol 3ml nebule NEB ONE (03:20)
[2019-02-28] MEDS ORDERED: normal saline 1000ML IV soln IVB ONE (03:20)
[2019-02-28] MEDS ORDERED: albuterol 2.5 MG/3 ML nebule NEB ONE (03:20)
[2019-02-28] MEDS ORDERED: methylPREDNISolone sod succ 125mg/2ml vial IV ONE (03:20)
[2019-02-28 03:36] LABS: BASOPHILS # (AUTO) 0.1 X10'3 (0-0.2); BASOPHILS % (AUTO) 0.7 % (0-1); EOSINOPHILS # (AUTO) 0.1 X10'3 (0-0.9); EOSINOPHILS % (AUTO) 0.8 % (0-6); HEMATOCRIT 44.5 % (35.0-45.0); HEMOGLOBIN 14.8 g/dl (12.0-16.0); LYMPHOCYTES # (AUTO) 2.7 X10'3 (1.1-4.8); LYMPHOCYTES % (AUTO) 25.9 % (21-51); MEAN CORPUSCULAR HEMOGLOBIN 29.5 PG (27.0-31.0); MEAN CORPUSCULAR HGB CONC 33.1 g/dL (33.0-36.5); MEAN CORPUSCULAR VOLUME 88.9 FL (78-98); MEAN PLATELET VOLUME 7.8 FL (7.4-10.4); MONOCYTES % (AUTO) 9.3 % (2-12); NEUTROPHILS # (AUTO) 6.6 X10'3 (1.8-7.7); NEUTROPHILS % (AUTO) 63.3 % (42-75); PLATELET COUNT 323 X10'3 (140-440); RED BLOOD COUNT 5.01 X10'6 (4.20-5.60); RED CELL DISTRIBUTION WIDTH 14.5 % (11.5-14.5); WHITE BLOOD COUNT 10.5 X10'3 (4.5-11.0)
[2019-02-28 03:52] LABS: PARTIAL THROMBOPLASTIN TIME 21 SECONDS (22-32)
[2019-02-28 03:55] LABS: ALANINE AMINOTRANSFERASE 32 U/L (12-78); ALBUMIN 3.8 G/DL (3.4-5.0); ALBUMIN/GLOBULIN RATIO 1.2 (1.1-1.5); ALKALINE PHOSPHATASE 57 IU/L (46-116); ANION GAP 6 (8-16); ASPARTATE AMINO TRANSFERASE 30 U/L (10-37); BILIRUBIN,TOTAL 0.2 MG/DL (0.1-1.0); BLOOD UREA NITROGEN 20 MG/DL (7-18); BUN/CREATININE RATIO 15.4 (6.6-38.0); CALCIUM 9.4 MG/DL (8.5-10.1); CHLORIDE 103 MMOL/L (99-107); GLUCOSE 122 MG/DL (70-104); POTASSIUM 4.3 MMOL/L (3.5-5.1); SODIUM 143 MMOL/L (135-145); TOTAL CARBON DIOXIDE 34.5 MMOL/L (24-32); eGFR 42 ML/MIN
--- NOTE | 2019-02-28 04:18 | NUR ---
DR. LOMAS AT BEDSIDE STATED TO TURN OFF O2 NC AND TO SEE HOW PATIENT SPO2 IS
[2019-02-28] MEDS ORDERED: PRED20TA PO (04:26)
[2019-02-28] MEDS ORDERED: AZIT250T PO (04:26)
--- NOTE | 2019-02-28 04:27 | NUR ---
UP TO BSC TO VOID. PT WITH SOB ONCE OUT OF BED AND SITTING. O2 SATS 93% ON [address] LOMAS TAKING WITH PT ABOU DC INSTRUCTIONS.
[2019-02-28 05:03] VITALS: BP 129/76
== END 2019-02-28 05:24 | disposition home or self-care (01) ==
LOC: ER 03:14
DX: J44.1 Chronic obstructive pulmonary disease with (acute) exacerbation (principal); I11.0 Hypertensive heart disease with heart failure; I50.9 Heart failure, unspecified; E78.00 Pure hypercholesterolemia, unspecified; Z87.11 Personal history of peptic ulcer disease; Z59.0 Homelessness; Z56.0 Unemployment, unspecified; Z90.49 Acquired absence of other specified parts of digestive tract; Z90.710 Acquired absence of both cervix and uterus; Z98.51 Tubal ligation status; Z87.891 Personal history of nicotine dependence; Z88.2 Allergy status to sulfonamides; Z79.899 Other long term (current) drug therapy
CPT/HCPCS: 36415; 71045; 80053; 83880; 85025; 85610; 85730; 93005; 94640; 96374; 99284; J2930; J7040; 94760

== ENCOUNTER 2019-04-07 19:19 | Emergency (ER) | payer MEDICAID ==
[~2019-04-07] VITALS: Ht 154.9 cm; Wt 34.1 kg
[~2019-04-07 19:19] MED LIST changes: +AZIT250T PO; -NAPR-56 PO
[2019-04-07] MEDS ORDERED: ipratropium/albuterol 3ml nebule NEB ONE (20:15)
[2019-04-07] MEDS ORDERED: HYDROcodone/acetaminophen 5mg/325mg tablet PO ONE (21:05)
[2019-04-07 21:50] LABS: BASOPHILS % (AUTO) 0.3 % (0-1); EOSINOPHILS % (AUTO) 0 % (0-6); HEMATOCRIT 43.6 % (35.0-45.0); HEMOGLOBIN 14.6 g/dl (12.0-16.0); LYMPHOCYTES # (AUTO) 0.6 X10'3 (1.1-4.8); LYMPHOCYTES % (AUTO) 5.6 % (21-51); MEAN CORPUSCULAR HEMOGLOBIN 29.6 PG (27.0-31.0); MEAN CORPUSCULAR HGB CONC 33.5 g/dL (33.0-36.5); MEAN CORPUSCULAR VOLUME 88.6 FL (78-98); MEAN PLATELET VOLUME 7.8 FL (7.4-10.4); MONOCYTES # (AUTO) 0.5 X10'3 (0-0.9); MONOCYTES % (AUTO) 4.5 % (2-12); NEUTROPHILS # (AUTO) 10.4 X10'3 (1.8-7.7); NEUTROPHILS % (AUTO) 89.6 % (42-75); PLATELET COUNT 311 X10'3 (140-440); RED BLOOD COUNT 4.92 X10'6 (4.20-5.60); RED CELL DISTRIBUTION WIDTH 14.3 % (11.5-14.5); WHITE BLOOD COUNT 11.6 X10'3 (4.5-11.0)
[2019-04-07 21:58] LABS: ALANINE AMINOTRANSFERASE 25 U/L (12-78); ALBUMIN 3.8 G/DL (3.4-5.0); ALBUMIN/GLOBULIN RATIO 1.2 (1.1-1.5); ALKALINE PHOSPHATASE 54 IU/L (46-116); ANION GAP 11 (8-16); ASPARTATE AMINO TRANSFERASE 23 U/L (10-37); BILIRUBIN,TOTAL 0.3 MG/DL (0.1-1.0); BLOOD UREA NITROGEN 14 MG/DL (7-18); BUN/CREATININE RATIO 15.9 (6.6-38.0); CALCIUM 9.9 MG/DL (8.5-10.1); CHLORIDE 103 MMOL/L (99-107); CREATININE 0.88 MG/DL (0.40-0.90); GLUCOSE 127 MG/DL (70-104); SODIUM 145 MMOL/L (135-145); TOTAL CARBON DIOXIDE 31.4 MMOL/L (24-32); TOTAL PROTEIN 7.1 G/DL (6.4-8.2); eGFR 66 ML/MIN
[2019-04-07 22:06] VITALS: BP 135/45
== END 2019-04-07 23:09 | disposition home or self-care (01) ==
LOC: ER 19:20
DX: R07.89 Other chest pain (principal); E78.00 Pure hypercholesterolemia, unspecified; J44.9 Chronic obstructive pulmonary disease, unspecified; I11.0 Hypertensive heart disease with heart failure; I50.9 Heart failure, unspecified; Z59.0 Homelessness; Z56.0 Unemployment, unspecified; Z87.891 Personal history of nicotine dependence; Z90.49 Acquired absence of other specified parts of digestive tract; Z90.710 Acquired absence of both cervix and uterus; Z98.51 Tubal ligation status; Z88.2 Allergy status to sulfonamides; Z79.899 Other long term (current) drug therapy
CPT/HCPCS: 36415; 80053; 83880; 84484; 85025; 93005; 94640; 94760; 99284

== ENCOUNTER 2019-11-13 13:50 | Emergency (ER) | payer MEDICAID ==
[~2019-11-13] VITALS: Ht 154.9 cm; Wt 35.5 kg
[2019-11-13 14:32] LABS: BASOPHILS % (AUTO) 0.2 % (0-1); EOSINOPHILS % (AUTO) 0.1 % (0-6); HEMATOCRIT 44.7 % (35.0-45.0); HEMOGLOBIN 14.8 g/dl (12.0-16.0); LYMPHOCYTES # (AUTO) 0.8 X10'3 (1.1-4.8); LYMPHOCYTES % (AUTO) 5.4 % (21-51); MEAN CORPUSCULAR HEMOGLOBIN 29.6 PG (27.0-31.0); MEAN CORPUSCULAR HGB CONC 33.1 g/dL (33.0-36.5); MEAN CORPUSCULAR VOLUME 89.5 FL (78-98); MEAN PLATELET VOLUME 7.1 FL (7.4-10.4); MONOCYTES # (AUTO) 0.8 X10'3 (0-0.9); MONOCYTES % (AUTO) 5.4 % (2-12); NEUTROPHILS # (AUTO) 12.6 X10'3 (1.8-7.7); NEUTROPHILS % (AUTO) 88.9 % (42-75); PLATELET COUNT 307 X10'3 (140-440); RED BLOOD COUNT 4.99 X10'6 (4.20-5.60); WHITE BLOOD COUNT 14.2 X10'3 (4.5-11.0)
[2019-11-13 15:00] LABS: ALANINE AMINOTRANSFERASE 91 U/L (12-78); ALBUMIN 3.5 G/DL (3.4-5.0); ALBUMIN/GLOBULIN RATIO 1.1 (1.1-1.5); ALKALINE PHOSPHATASE 54 IU/L (46-116); ANION GAP 8 (8-16); ASPARTATE AMINO TRANSFERASE 54 U/L (10-37); BILIRUBIN,TOTAL 0.3 MG/DL (0.1-1.0); BLOOD UREA NITROGEN 18 MG/DL (7-18); BUN/CREATININE RATIO 26.1 (6.6-38.0); CALCIUM 9.2 MG/DL (8.5-10.1); CHLORIDE 100 MMOL/L (99-107); CREATININE 0.69 MG/DL (0.40-0.90); GLUCOSE 106 MG/DL (70-104); POTASSIUM 4.4 MMOL/L (3.5-5.1); SODIUM 139 MMOL/L (135-145); TOTAL CARBON DIOXIDE 31.5 MMOL/L (24-32); TOTAL PROTEIN 6.8 G/DL (6.4-8.2); eGFR 87 ML/MIN
[2019-11-13] MEDS ORDERED: triamcinolone acetonide 40mg/ml inj IM ONE (15:10)
[2019-11-13] MEDS ORDERED: LORazepam 2 mg/ml vial IV ONE (15:10)
[2019-11-13 15:26] LABS: CLARITY,URINE SLIGHTLY CLOUDY (Clear); COLOR,URINE STRAW (Yellow); GLUCOSE, URINE NEGATIVE (Neg); KETONES,URINE NEGATIVE (Neg); LEUKOCYTE ESTERASE ,URINE NEGATIVE (Neg); NITRITES, URINE NEGATIVE (Neg); OCCULT BLOOD,URINE SMALL (Neg); PROTEIN,URINE >=300 mg/dl (Neg); UA COLLECTION TYPE CLN CATCH MIDSTREAM; UROBILINOGEN,URINE 0.2 E.U/dL (0.2-1.0)
[2019-11-13 15:37] LABS: HYALINE CASTS 0-3 /LPF (NEGATIVE); MUCUS STRANDS FEW /LPF (Neg); SQUAMOUS EPITHELIAL CELL,UR MANY /LPF (FEW)
[2019-11-13 15:38] LABS: COARSE GRANULAR CAST 0-3 /LPF (NEGATIVE)
[2019-11-13 15:40] LABS: BACTERIA,URINE 1+ /HPF (Neg); RENAL CELLS, URINE FEW /HPF; TRANSITIONAL EPI CELLS,URINE FEW /HPF; WBC,URINE 0-4 /HPF (0-4)
--- NOTE | 2019-11-13 16:16 | NUR ---
[facility] WAS CALLED FOR PT TO GO TO [address].
[2019-11-13 16:31] VITALS: BP 114/98
== END 2019-11-13 16:33 | disposition home or self-care (01) ==
LOC: ER 13:51
DX: R06.02 Shortness of breath (principal); I11.0 Hypertensive heart disease with heart failure; I50.9 Heart failure, unspecified; E78.00 Pure hypercholesterolemia, unspecified; J44.9 Chronic obstructive pulmonary disease, unspecified; Z90.49 Acquired absence of other specified parts of digestive tract; Z90.710 Acquired absence of both cervix and uterus; Z98.51 Tubal ligation status; Z60.2 Problems related to living alone; Z59.0 Homelessness; Z56.0 Unemployment, unspecified; Z88.2 Allergy status to sulfonamides; Z79.899 Other long term (current) drug therapy
CPT/HCPCS: 36415; 71045; 80053; 81001; 83880; 84484; 85025; 93005; 96372; 96374; 99285; J2060; J3301

== ENCOUNTER 2021-06-09 12:27 | Inpatient (IN) | payer MEDICAID ==
[~2021-06-09] VITALS: Ht 154.9 cm; Wt 48.8 kg
[~2021-06-09 12:27] MED LIST changes: -ALEN35TA21 PO; +ALEN35TA53 PO; +LISI10TA27 PO; -LISI10TA4 PO; +NABU-139 PO; -NABU500T2 PO
[2021-06-09] MEDS ORDERED: TIOT18CA3 (12:55)
[2021-06-09] MEDS ORDERED: normal saline 1000ML IV soln IVB ONE (14:25)
[2021-06-09] MEDS ORDERED: methylPREDNISolone sod succ 125mg/2ml vial IV ONE (14:25)
[2021-06-09] MEDS ORDERED: ipratropium/albuterol 3ml nebule NEB ONE (14:25)
[2021-06-09] MEDS ORDERED: albuterol 2.5 MG/3 ML nebule NEB ONE (14:25)
[2021-06-09 15:04] LABS: BASOPHILS % (AUTO) 0 % (0-1); EOSINOPHILS % (AUTO) 0.1 % (0-6); HEMATOCRIT 45.9 % (35.0-45.0); HEMOGLOBIN 15.2 g/dl (12.0-16.0); LYMPHOCYTES # (AUTO) 0.7 X10'3 (1.1-4.8); LYMPHOCYTES % (AUTO) 5.9 % (21-51); MEAN CORPUSCULAR HEMOGLOBIN 29.1 PG (27.0-31.0); MEAN CORPUSCULAR HGB CONC 33.2 g/dL (33.0-36.5); MEAN CORPUSCULAR VOLUME 87.8 FL (78-98); MEAN PLATELET VOLUME 7.5 FL (7.4-10.4); MONOCYTES # (AUTO) 0.9 X10'3 (0-0.9); MONOCYTES % (AUTO) 8.1 % (2-12); NEUTROPHILS # (AUTO) 9.8 X10'3 (1.8-7.7); NEUTROPHILS % (AUTO) 85.9 % (42-75); PLATELET COUNT 285 X10'3 (140-440); RED BLOOD COUNT 5.23 X10'6 (4.20-5.60); RED CELL DISTRIBUTION WIDTH 15.8 % (11.5-14.5); WHITE BLOOD COUNT 11.4 X10'3 (4.5-11.0)
[2021-06-09 15:10] LABS: ALANINE AMINOTRANSFERASE 55 U/L (12-78); ALBUMIN 3.1 G/DL (3.4-5.0); ALBUMIN/GLOBULIN RATIO 0.9 (1.1-1.5); ALKALINE PHOSPHATASE 74 IU/L (46-116); ANION GAP 9 (8-16); ASPARTATE AMINO TRANSFERASE 31 U/L (10-37); BILIRUBIN,TOTAL 0.2 MG/DL (0.1-1.0); BLOOD UREA NITROGEN 13 MG/DL (7-18); BUN/CREATININE RATIO 20.3 (6.6-38.0); CALCIUM 8.7 MG/DL (8.5-10.1); CHLORIDE 104 MMOL/L (99-107); CREATININE 0.64 MG/DL (0.40-0.90); GLUCOSE 88 MG/DL (70-104); POTASSIUM 4.7 MMOL/L (3.5-5.1); SODIUM 143 MMOL/L (135-145); TOTAL CARBON DIOXIDE 29.9 MMOL/L (24-32); TOTAL PROTEIN 6.7 G/DL (6.4-8.2); eGFR > 90 ML/MIN
[2021-06-09 15:33] LABS: PLATELET ESTIMATE NORMAL; TOTAL CELLS COUNTED 100
[2021-06-09] MEDS ORDERED: acetaminophen 650mg rectal suppository RC PRN (16:15)
[2021-06-09] MEDS ORDERED: ondansetron/PF 4mg/2ml inj IV PRN (16:15)
[2021-06-09] MEDS ORDERED: diphenhydrAMINE 25mg capsule PO PRN (16:15)
[2021-06-09] MEDS ORDERED: magnesium 4gm in 100ml NS 100 ML IV PRN (16:15)
[2021-06-09] MEDS ORDERED: ipratropium/albuterol 3ml nebule NEB PRN (16:15)
[2021-06-09] MEDS ORDERED: PERFLUTREN PROTEIN-A MICROSPHR (Optison) 0.22 MG/ML 3ML VIAL IV ONE (16:15)
[2021-06-09] MEDS ORDERED: potassium Cl 20 mEq SR tablet PO PRN ×2 (16:15)
[2021-06-09] MEDS ORDERED: mag hydrox/Alum hydrox/simeth 30ml oral suspension PO PRN (16:15)
[2021-06-09] MEDS ORDERED: potassium CL 10mEq/100ml bag 100 ML IV PRN (16:15)
[2021-06-09] MEDS ORDERED: acetaminophen 325mg tablet PO PRN ×2 (16:15)
[2021-06-09] MEDS ORDERED: magnesium Cl slow-release 64mg tablet PO PRN (16:15)
[2021-06-09] MEDS ORDERED: morphine 2 MG/ML inj. syringe IV PRN ×2 (16:15)
[2021-06-09] MEDS ORDERED: magnesium 2GM in 50ml NS 50 ML IV PRN (16:15)
[2021-06-09] MEDS ORDERED: NALOXONE HCL PRN (16:15)
[2021-06-09] MEDS ORDERED: bisacodyl 10mg suppository rectal RC PRN (16:15)
[2021-06-09] MEDS ORDERED: aspirin 81mg tab.chew PO ONE (16:20)
[2021-06-09] MEDS ORDERED: iohexol 350MG/ML 100ml bottle IV ONE (16:57)
[2021-06-09 17:09] LABS: HEMOGLOBIN A1C 6.1 % (4.5-6.2)
[2021-06-09] MEDS: azithromycin 250mg tablet PO SCH (17:10)
[2021-06-09] MEDS: baclofen 10mg tablet PO PRN (17:11)
[2021-06-09 17:13] LABS: CLARITY,URINE CLEAR (Clear); GLUCOSE, URINE NEGATIVE (Neg); KETONES,URINE NEGATIVE (Neg); LEUKOCYTE ESTERASE ,URINE NEGATIVE (Neg); NITRITES, URINE NEGATIVE (Neg); OCCULT BLOOD,URINE NEGATIVE (Neg); PROTEIN,URINE NEGATIVE (Neg); UROBILINOGEN,URINE 0.2 E.U/dL (0.2-1.0)
[2021-06-09 17:14] LABS: COLOR,URINE STRAW (Yellow); UA COLLECTION TYPE VOIDED
[2021-06-09] MEDS: normal saline 1000ml 1,000 ML IV SCH (17:30)
[2021-06-09] MEDS: cefTRIAXone 1g/NS 100ml IVPB 100 ML IV SCH (17:30)
[2021-06-09] MEDS ORDERED: niCARdipine I.V. 50 MG in normal saline 250ml IV soln 230 ML IV SCH (18:15)
[2021-06-09] MEDS: ipratropium/albuterol 3ml nebule NEB SCH ×2 (18:54→22:34)
[2021-06-09] MEDS: niCARDipine-NS 40mg/200ml IVPB 250 ML IV SCH (19:08)
[2021-06-09] MEDS ORDERED: diltiazem 5mg/ml 5ml inj. IV ONE (19:15)
[2021-06-09] MEDS ORDERED: LORazepam 2 mg/ml vial IV ONE (19:15)
[2021-06-09] MEDS ORDERED: diltiazem-NS 100mg/100ml 100 ML IV ONE (19:15)
[2021-06-09] MEDS: docusate sod 100mg capsule PO SCH (20:00)
[2021-06-09] MEDS: K and/or MAG REPLACEMENT MC SCH (20:00)
[2021-06-09] MEDS: heparin, porcine 5000 units/ml vial SQ SCH (20:26)
[2021-06-09] MEDS: methylPREDNISolone sod succ 125mg/2ml vial IV SCH (20:26)
--- NOTE | 2021-06-09 21:52 | NUR ---
Patient sleeping comfortably in bed. No signs of distress.
[2021-06-09] MEDS: cholecalciferol (vitamin D3) 1,000 unit (25mcg) tablet PO SCH (22:40)
[2021-06-09] MEDS ORDERED: diltiazem-D5W 125mg/125ml 125 ML IV SCH (23:35)
[2021-06-09] MEDS ORDERED: diltiazem-NS 100mg/100ml 100 ML IV SCH (23:44)
[2021-06-10] VITALS (13 sets, daily range): BP systolic 127–158; BP diastolic 80–100
[2021-06-10] MEDS: niCARDipine-NS 40mg/200ml IVPB 250 ML IV SCH (01:00)
--- NOTE | 2021-06-10 01:10 | NUR ---
New admit at 01:02. Patient arrived via stretcher from ED, with nurse SABINO Brown at bedside. Patient was receieved on 2L via nasal cannula and Cardizem at5mg/hr. Patient denies pain. Admission vitals completed Addendum: 06/10/21 at 0112 by Karin Mercado RN Amended: Links added.
[2021-06-10] MEDS: methylPREDNISolone sod succ 125mg/2ml vial IV SCH ×4 (01:14→20:18)
[2021-06-10] MEDS: ipratropium/albuterol 3ml nebule NEB SCH ×6 (02:40→23:44)
[2021-06-10] MEDS: HYDROcodone/acetaminophen 10/325mg tab PO PRN ×2 (04:44→20:50)
[2021-06-10 05:17] LABS: BASOPHILS % (AUTO) 0 % (0-1); EOSINOPHILS % (AUTO) 0 % (0-6); HEMATOCRIT 41.6 % (35.0-45.0); HEMOGLOBIN 13.9 g/dl (12.0-16.0); LYMPHOCYTES # (AUTO) 0.4 X10'3 (1.1-4.8); LYMPHOCYTES % (AUTO) 3.4 % (21-51); MEAN CORPUSCULAR HEMOGLOBIN 29.3 PG (27.0-31.0); MEAN CORPUSCULAR HGB CONC 33.4 g/dL (33.0-36.5); MEAN CORPUSCULAR VOLUME 87.7 FL (78-98); MEAN PLATELET VOLUME 7.3 FL (7.4-10.4); MONOCYTES # (AUTO) 0.2 X10'3 (0-0.9); MONOCYTES % (AUTO) 1.5 % (2-12); NEUTROPHILS # (AUTO) 9.8 X10'3 (1.8-7.7); NEUTROPHILS % (AUTO) 95.1 % (42-75); PLATELET COUNT 259 X10'3 (140-440); RED BLOOD COUNT 4.74 X10'6 (4.20-5.60); RED CELL DISTRIBUTION WIDTH 15.9 % (11.5-14.5); WHITE BLOOD COUNT 10.3 X10'3 (4.5-11.0)
[2021-06-10 05:56] LABS: ALANINE AMINOTRANSFERASE 56 U/L (12-78); ALBUMIN 2.8 G/DL (3.4-5.0); ALBUMIN/GLOBULIN RATIO 0.9 (1.1-1.5); ALKALINE PHOSPHATASE 64 IU/L (46-116); ANION GAP 11 (8-16); ASPARTATE AMINO TRANSFERASE 25 U/L (10-37); BILIRUBIN,TOTAL 0.2 MG/DL (0.1-1.0); BLOOD UREA NITROGEN 22 MG/DL (7-18); CALCIUM 8.8 MG/DL (8.5-10.1); CHLORIDE 105 MMOL/L (99-107); CHOL/HDL RATIO 1.9 (0.00-4.99); CHOLESTEROL 246 MG/DL (0-200); GLUCOSE 184 MG/DL (70-104); HDL CHOLESTEROL 130 MG/DL (35-60); LDL CHOLESTEROL 95 MG/DL (50-100); MAGNESIUM 1.9 MG/DL (1.5-2.4); PHOSPHORUS 3.5 MG/DL (2.3-4.5); POTASSIUM 4.3 MMOL/L (3.5-5.1); SODIUM 143 MMOL/L (135-145); TOTAL CARBON DIOXIDE 26.8 MMOL/L (24-32); TOTAL PROTEIN 5.8 G/DL (6.4-8.2); TRIGLYCERIDES 100 MG/DL (20-135); eGFR 56 ML/MIN
[2021-06-10] MEDS ORDERED: TIOT4MIS2 PO (07:32)
[2021-06-10] MEDS ORDERED: BUDE10.27 PO (07:33)
[2021-06-10] MEDS: cefTRIAXone 1g/NS 100ml IVPB 100 ML IV SCH (07:33)
[2021-06-10] MEDS: lisinopril 10 MG tablet PO SCH (07:38)
[2021-06-10] MEDS: azithromycin 250mg tablet PO SCH (07:38)
[2021-06-10] MEDS: heparin, porcine 5000 units/ml vial SQ SCH ×2 (07:39→20:18)
[2021-06-10] MEDS: K and/or MAG REPLACEMENT MC SCH ×2 (07:39→18:41)
[2021-06-10] MEDS: docusate sod 100mg capsule PO SCH ×2 (07:39→20:17)
[2021-06-10] MEDS ORDERED: NABUMETONE PO SCH (08:00)
--- NOTE | 2021-06-10 09:47 | NUR ---
Paged Dr Message: [phone]. Hira Alcantara. Cardizem gtt d/c, start PO now? PO scheduled for 1400. Meggan Frazier [phone] Custom Responses:promotional table spacer Transaction number: [id number]
[2021-06-10] MEDS ORDERED: diltiazem 30mg tablet PO STA (11:18)
--- NOTE | 2021-06-10 11:50 | NUR ---
[phone] Thx
--- NOTE | 2021-06-10 11:53 | NUR ---
Per Dr Pretty: paged RT for outstanding ABG, ordered CXR for f/u SOB, Called dietary to assist in adding ensure BID and extra protein. Pending call back.
--- NOTE | 2021-06-10 12:52 | NUR ---
Per phone call with Dietary - they will assess patient further. Assisted with entering ensure BID for patient per MD order.
[2021-06-10] MEDS: diltiazem 30mg tablet PO SCH ×2 (14:00→20:18)
--- NOTE | 2021-06-10 14:00 | NUR ---
Speedy soriano MD wants to be retimed. Per pharmacy re: They advised to miss dose as this dose is to early to give based on the one time dose given at 1137.
--- NOTE | 2021-06-10 16:33 | NUR ---
Paged RT [phone]. Hira Alcantara. ABG needed per MD - 2nd request. Thx
--- NOTE | 2021-06-10 16:38 | NUR ---
Paged Dr Pretty Message: [phone]. Hira Alcantara. Returning call to you. Meggan [phone] Custom Responses:promotional table spacer Transaction number: [id number]
[2021-06-10 17:41] LABS: ABG BASE EXCESS 0.1 mmol/L (-2.0-2.0); ABG HCO3 25.7 mmol/L (22.0-26.0); ABG OXYGEN SATURATION 94.3 % (94-97); ABG PCO2 (T) 44.9 mmHg (32.0-45.0); ABG PO2 (T) 72.2 mmHg (75.0-100.0); ALLEN'S TEST POSITIVE; FCOHb 0.2 % (0.0-3.9); FMetHb 0.3 % (0.0-1.5); FO2Hb 93.8 % (94-97); TOTAL HEMOGLOBIN 14.1 G/dl (12.0-16.0)
[2021-06-10] MEDS: lactose-reduced food (Ensure Enlive) - 237ml bottle PO SCH (18:15)
--- NOTE | 2021-06-10 18:30 | NUR ---
Orientee documentation: I have reviewed and agree with all interventions, assessments performed and documented by GILES Zaragoza II.
--- NOTE | 2021-06-10 18:31 | NUR ---
Problems reprioritized. Patient report given, questions answered & plan of care reviewed with SABINO Frazier.
[2021-06-10] MEDS: cholecalciferol (vitamin D3) 1,000 unit (25mcg) tablet PO SCH (20:19)
[2021-06-10] MEDS: baclofen 10mg tablet PO PRN (20:50)
[2021-06-11] VITALS (8 sets, daily range): BP systolic 132–162; BP diastolic 85–107
[2021-06-11] MEDS: methylPREDNISolone sod succ 125mg/2ml vial IV SCH ×4 (01:13→20:35)
[2021-06-11] MEDS: diltiazem 30mg tablet PO SCH ×4 (01:14→20:34)
[2021-06-11] MEDS: ipratropium/albuterol 3ml nebule NEB SCH ×6 (02:55→22:55)
--- NOTE | 2021-06-11 06:21 | NUR ---
Report given to SABINO Broderick. Patient in bed sleeping. No signs or symptoms of pain or distress noted
[2021-06-11 06:39] LABS: BASOPHILS % (AUTO) 0.1 % (0-1); EOSINOPHILS % (AUTO) 0 % (0-6); HEMATOCRIT 41.3 % (35.0-45.0); HEMOGLOBIN 13.5 g/dl (12.0-16.0); LYMPHOCYTES # (AUTO) 0.3 X10'3 (1.1-4.8); LYMPHOCYTES % (AUTO) 2.2 % (21-51); MEAN CORPUSCULAR HEMOGLOBIN 28.4 PG (27.0-31.0); MEAN CORPUSCULAR HGB CONC 32.7 g/dL (33.0-36.5); MEAN CORPUSCULAR VOLUME 86.9 FL (78-98); MEAN PLATELET VOLUME 7.6 FL (7.4-10.4); MONOCYTES # (AUTO) 0.6 X10'3 (0-0.9); NEUTROPHILS # (AUTO) 14.3 X10'3 (1.8-7.7); NEUTROPHILS % (AUTO) 93.7 % (42-75); PLATELET COUNT 270 X10'3 (140-440); RED BLOOD COUNT 4.75 X10'6 (4.20-5.60); RED CELL DISTRIBUTION WIDTH 15.9 % (11.5-14.5); WHITE BLOOD COUNT 15.3 X10'3 (4.5-11.0)
[2021-06-11 06:54] LABS: ALANINE AMINOTRANSFERASE 55 U/L (12-78); ALBUMIN 3.2 G/DL (3.4-5.0); ALBUMIN/GLOBULIN RATIO 0.9 (1.1-1.5); ALKALINE PHOSPHATASE 64 IU/L (46-116); ANION GAP 8 (8-16); ASPARTATE AMINO TRANSFERASE 20 U/L (10-37); BILIRUBIN,TOTAL 0.2 MG/DL (0.1-1.0); BLOOD UREA NITROGEN 27 MG/DL (7-18); BUN/CREATININE RATIO 42.2 (6.6-38.0); CALCIUM 9.7 MG/DL (8.5-10.1); CHLORIDE 101 MMOL/L (99-107); CREATININE 0.64 MG/DL (0.40-0.90); GLUCOSE 108 MG/DL (70-104); MAGNESIUM 2.2 MG/DL (1.5-2.4); PHOSPHORUS 4.2 MG/DL (2.3-4.5); POTASSIUM 4.6 MMOL/L (3.5-5.1); SODIUM 138 MMOL/L (135-145); TOTAL PROTEIN 6.6 G/DL (6.4-8.2); eGFR > 90 ML/MIN
[2021-06-11 07:33] LABS: METAMYLEOCYTES% (MANUAL) 1.5 % (0-0); NEUTROPHILS % (MANUAL) 94.5 % (42-75); PLATELET ESTIMATE NORMAL; TOTAL CELLS COUNTED 200
[2021-06-11] MEDS: K and/or MAG REPLACEMENT MC SCH ×2 (08:00→18:25)
[2021-06-11] MEDS: cefTRIAXone 1g/NS 100ml IVPB 100 ML IV SCH (08:00)
[2021-06-11] MEDS: azithromycin 250mg tablet PO SCH (08:03)
[2021-06-11] MEDS: docusate sod 100mg capsule PO SCH ×2 (08:03→20:34)
[2021-06-11] MEDS: lisinopril 10 MG tablet PO SCH (08:04)
[2021-06-11] MEDS: heparin, porcine 5000 units/ml vial SQ SCH ×2 (08:05→20:35)
[2021-06-11] MEDS: lactose-reduced food (Ensure Enlive) - 237ml bottle PO SCH ×2 (08:10→18:00)
[2021-06-11] MEDS ORDERED: ALBUTEROL INHALER 1 PUFF/90 MCG INHALER IH PRN (10:20)
[2021-06-11] MEDS: HYDROcodone/acetaminophen 10/325mg tab PO PRN ×2 (11:54→20:35)
[2021-06-11] MEDS ORDERED: ipratropium 0.5 MG/2.5ML nebule NEB SCH (15:00)
[2021-06-11] MEDS: normal saline 1000ml 1,000 ML IV SCH (16:15)
--- NOTE | 2021-06-11 18:23 | NUR ---
Pt has been baseline throughout shift. New medications approved by MD per pt request. Good intake and output. Pt continues to working towards d/c goals. Pt refused to work with PT today multiple attempts made by PT. Repositioned minimal 30 degree hip to hip r/t SOB and preference of pt. Education provided and pt verbalized understanding.
[2021-06-11] MEDS: budesonide 0.5mg/2ml UD nebule IH SCH (19:18)
[2021-06-11] MEDS ORDERED: non-formulary drug (Budesonide/Formoterol Fumarate (Budesonide-Formoterol 80-4.5) 2 PUFFS) PO SCH (20:00)
[2021-06-11] MEDS: cholecalciferol (vitamin D3) 1,000 unit (25mcg) tablet PO SCH (20:34)
[2021-06-11] MEDS: baclofen 10mg tablet PO PRN (20:34)
[2021-06-11] MEDS: benzocaine/menthol oral lozeng 1 EACH BOX MM PRN (20:36)
[2021-06-12] VITALS (11 sets, daily range): BP systolic 138–188; BP diastolic 86–107
[2021-06-12] MEDS: diltiazem 30mg tablet PO SCH ×4 (01:10→21:20)
[2021-06-12] MEDS: prednisone 10mg tablet PO SCH ×3 (01:10→14:04)
[2021-06-12] MEDS: HYDROcodone/acetaminophen 10/325mg tab PO PRN (01:11)
[2021-06-12] MEDS: benzocaine/menthol oral lozeng 1 EACH BOX MM PRN ×3 (01:11→21:20)
[2021-06-12] MEDS: ipratropium/albuterol 3ml nebule NEB SCH ×6 (03:01→23:15)
--- NOTE | 2021-06-12 06:05 | NUR ---
Problems reprioritized. Patient report given, questions answered & plan of care reviewed with SABINO Mcnulty. Patient in bed resting watching TV. Denies pain
[2021-06-12 06:40] LABS: BASOPHILS % (AUTO) 0 % (0-1); EOSINOPHILS % (AUTO) 0 % (0-6); HEMATOCRIT 45.3 % (35.0-45.0); LYMPHOCYTES # (AUTO) 0.4 X10'3 (1.1-4.8); LYMPHOCYTES % (AUTO) 2.3 % (21-51); MEAN CORPUSCULAR HEMOGLOBIN 29.3 PG (27.0-31.0); MEAN CORPUSCULAR HGB CONC 33.2 g/dL (33.0-36.5); MEAN CORPUSCULAR VOLUME 88.2 FL (78-98); MEAN PLATELET VOLUME 7.6 FL (7.4-10.4); MONOCYTES % (AUTO) 5.8 % (2-12); NEUTROPHILS # (AUTO) 16.3 X10'3 (1.8-7.7); NEUTROPHILS % (AUTO) 91.9 % (42-75); PLATELET COUNT 288 X10'3 (140-440); RED BLOOD COUNT 5.13 X10'6 (4.20-5.60); WHITE BLOOD COUNT 17.7 X10'3 (4.5-11.0)
[2021-06-12 06:49] LABS: ALANINE AMINOTRANSFERASE 65 U/L (12-78); ALBUMIN 3.4 G/DL (3.4-5.0); ALBUMIN/GLOBULIN RATIO 0.9 (1.1-1.5); ALKALINE PHOSPHATASE 66 IU/L (46-116); ANION GAP 9 (8-16); ASPARTATE AMINO TRANSFERASE 26 U/L (10-37); BILIRUBIN,TOTAL 0.2 MG/DL (0.1-1.0); BLOOD UREA NITROGEN 34 MG/DL (7-18); BUN/CREATININE RATIO 49.3 (6.6-38.0); CALCIUM 10.4 MG/DL (8.5-10.1); CHLORIDE 100 MMOL/L (99-107); CREATININE 0.69 MG/DL (0.40-0.90); GLUCOSE 105 MG/DL (70-104); MAGNESIUM 2.5 MG/DL (1.5-2.4); PHOSPHORUS 3.7 MG/DL (2.3-4.5); POTASSIUM 5.1 MMOL/L (3.5-5.1); SODIUM 138 MMOL/L (135-145); TOTAL CARBON DIOXIDE 29.4 MMOL/L (24-32); TOTAL PROTEIN 7.1 G/DL (6.4-8.2); eGFR 86 ML/MIN
[2021-06-12] MEDS: budesonide 0.5mg/2ml UD nebule IH SCH ×2 (07:19→19:58)
[2021-06-12 07:31] LABS: PLATELET ESTIMATE NORMAL; TOTAL CELLS COUNTED 100
[2021-06-12 07:32] LABS: BURR CELLS FEW
[2021-06-12 07:33] LABS: ANISOCYTOSIS FEW
[2021-06-12] MEDS: azithromycin 250mg tablet PO SCH (07:55)
[2021-06-12] MEDS: docusate sod 100mg capsule PO SCH ×2 (07:55→21:21)
[2021-06-12] MEDS: lisinopril 10 MG tablet PO SCH (07:56)
[2021-06-12] MEDS: heparin, porcine 5000 units/ml vial SQ SCH ×2 (08:00→21:15)
[2021-06-12] MEDS: K and/or MAG REPLACEMENT MC SCH ×2 (08:00→20:00)
[2021-06-12] MEDS: cefTRIAXone 1g/NS 100ml IVPB 100 ML IV SCH (08:37)
[2021-06-12] MEDS: lactose-reduced food (Ensure Enlive) - 237ml bottle PO SCH ×2 (08:38→21:25)
--- NOTE | 2021-06-12 10:18 | NUR ---
Initial: Pt admitted w/ acute respiratory failure from end stage COPD per EMR. Noted low BMI of 17, though current scaled wt is consistent w/ wts from previous admits all the way back to 2010. Pt appears cachectic per MD notes. This is likely pt's baseline wt and appearance as she has been eating well this admit. Currently on Heart Healthy diet eating mostly 100% of meals and also receiving Ensure Enlive BID, consuming avg 75% x 3 ONS. Overall exceeding est nutrient needs at this time. Recommend liberalizing to Regular diet. No edema noted. LBM 06/09 receiving routine colace. Will continue to monitor. Recs: 1. Liberalize to Regular diet 2. Ensure Enlive BID per MD 3. Bowel care per rx 4. Weekly wts Addendum: 06/12/21 at [address] Amended: Links added.
[2021-06-12] MEDS ORDERED: LORazepam 2 mg/ml vial IM PRN (10:30)
[2021-06-12] MEDS ORDERED: LORazepam 2 mg/ml vial IV PRN (11:30)
--- NOTE | 2021-06-12 11:49 | NUR ---
administered 1 mg ativan IVP - had to change route in the middle of administration from IM to IVP per MD. Was not able to scan ativan vial as it was already disposed of correctly. 2 nurses in room during administration and order change. Myself and Samson SKAGGS II.
--- NOTE | 2021-06-12 14:30 | NUR ---
Pt aroused to touch when PT went into to work with her but she is very sleepy. BP is elevated, SBP 170's. Sched Cardizem PO administered and pt was able to swallow with ease. BP still elevated about 15/20 min after administration. She is sleepy, no pain, does not feel anxious. MD notified.
--- NOTE | 2021-06-12 14:38 | NUR ---
Paged Dr Pretty Message: [phone]. Hira Alcantara. BP 170/105. Ativan given at 1149. [facility] advise Meggan [phone] Custom Responses:promotional table spacer Transaction number: [id number]
--- NOTE | 2021-06-12 18:30 | NUR ---
Orientee documentation: I have reviewed and agree with all interventions, assessments performed and documented by GILES Zaragoza II.
[2021-06-12] MEDS: cholecalciferol (vitamin D3) 1,000 unit (25mcg) tablet PO SCH (21:20)
[2021-06-13 02:31] VITALS: BP 170/99
[2021-06-13] MEDS: diltiazem 30mg tablet PO SCH ×4 (02:33→21:26)
[2021-06-13] MEDS: ipratropium/albuterol 3ml nebule NEB SCH ×6 (03:16→23:10)
[2021-06-13] MEDS: benzocaine/menthol oral lozeng 1 EACH BOX MM PRN (05:56)
[2021-06-13] MEDS: HYDROcodone/acetaminophen 10/325mg tab PO PRN ×2 (06:01→15:59)
[2021-06-13 06:30] VITALS: BP 156/98
--- NOTE | 2021-06-13 06:50 | NUR ---
Patient in room PCU 3024. I have received report from SABINO Levy and had the opportunity to ask questions and assume patient care.
[2021-06-13 07:00] LABS: BASOPHILS % (AUTO) 0.3 % (0-1); EOSINOPHILS % (AUTO) 0 % (0-6); HEMATOCRIT 43.9 % (35.0-45.0); HEMOGLOBIN 14.3 g/dl (12.0-16.0); LYMPHOCYTES # (AUTO) 0.4 X10'3 (1.1-4.8); LYMPHOCYTES % (AUTO) 2.9 % (21-51); MEAN CORPUSCULAR HEMOGLOBIN 28.3 PG (27.0-31.0); MEAN CORPUSCULAR HGB CONC 32.5 g/dL (33.0-36.5); MEAN PLATELET VOLUME 7.6 FL (7.4-10.4); MONOCYTES # (AUTO) 1.6 X10'3 (0-0.9); MONOCYTES % (AUTO) 10.6 % (2-12); NEUTROPHILS # (AUTO) 13.4 X10'3 (1.8-7.7); NEUTROPHILS % (AUTO) 86.2 % (42-75); PLATELET COUNT 277 X10'3 (140-440); RED BLOOD COUNT 5.04 X10'6 (4.20-5.60); RED CELL DISTRIBUTION WIDTH 15.6 % (11.5-14.5); WHITE BLOOD COUNT 15.5 X10'3 (4.5-11.0)
[2021-06-13 07:14] LABS: ALANINE AMINOTRANSFERASE 74 U/L (12-78); ALBUMIN 3.1 G/DL (3.4-5.0); ALKALINE PHOSPHATASE 62 IU/L (46-116); ANION GAP 5 (8-16); ASPARTATE AMINO TRANSFERASE 35 U/L (10-37); BILIRUBIN,TOTAL 0.2 MG/DL (0.1-1.0); BLOOD UREA NITROGEN 41 MG/DL (7-18); BUN/CREATININE RATIO 53.2 (6.6-38.0); CALCIUM 9.6 MG/DL (8.5-10.1); CHLORIDE 102 MMOL/L (99-107); CREATININE 0.77 MG/DL (0.40-0.90); GLUCOSE 105 MG/DL (70-104); PHOSPHORUS 2.6 MG/DL (2.3-4.5); POTASSIUM 4.9 MMOL/L (3.5-5.1); SODIUM 138 MMOL/L (135-145); TOTAL PROTEIN 6.2 G/DL (6.4-8.2); eGFR 76 ML/MIN
[2021-06-13 07:20] LABS: TOTAL CELLS COUNTED 100
[2021-06-13 07:21] LABS: ANISOCYTOSIS 1+; PLATELET ESTIMATE NORMAL
[2021-06-13] MEDS: budesonide 0.5mg/2ml UD nebule IH SCH ×2 (07:27→19:09)
[2021-06-13] MEDS ORDERED: LORazepam 2 mg/ml vial IV ONE (08:00)
[2021-06-13] MEDS: K and/or MAG REPLACEMENT MC SCH ×2 (08:00→19:21)
[2021-06-13] MEDS: lactose-reduced food (Ensure Enlive) - 237ml bottle PO SCH ×2 (08:16→20:00)
[2021-06-13] MEDS: cefTRIAXone 1g/NS 100ml IVPB 100 ML IV SCH (10:09)
[2021-06-13] MEDS: magnesium hydroxide 30ml (MOM) UD suspension PO PRN (10:14)
[2021-06-13] MEDS: azithromycin 250mg tablet PO SCH (10:23)
[2021-06-13] MEDS: lisinopril 10 MG tablet PO SCH (10:23)
[2021-06-13] MEDS: docusate sod 100mg capsule PO SCH ×2 (10:23→21:25)
[2021-06-13] MEDS: prednisone 10mg tablet PO SCH (10:23)
[2021-06-13] MEDS: heparin, porcine 5000 units/ml vial SQ SCH ×2 (10:24→21:26)
[2021-06-13 11:00] VITALS: BP 186/108
[2021-06-13 15:00] VITALS: BP 158/98
[2021-06-13 18:00] VITALS: BP 142/95
--- NOTE | 2021-06-13 18:00 | NUR ---
Patient in room PCU 3024. I have received report from Jennifer and had the opportunity to ask questions and assume patient care.
--- NOTE | 2021-06-13 18:30 | NUR ---
Problems reprioritized. Patient report given, questions answered & plan of care reviewed with SABINO Levy.
[2021-06-13] MEDS: cholecalciferol (vitamin D3) 1,000 unit (25mcg) tablet PO SCH (21:25)
[2021-06-13 22:00] VITALS: BP 163/106
[2021-06-13] MEDS ORDERED: hydrALAZINE 20mg/ml inj. IV PRN (23:55)
[2021-06-13] MEDS ORDERED: lisinopril 10 MG tablet PO ONE (23:55)
[2021-06-14] VITALS (7 sets, daily range): BP systolic 105–139; BP diastolic 68–87
[2021-06-14] MEDS: benzocaine/menthol oral lozeng 1 EACH BOX MM PRN ×2 (01:43→08:20)
[2021-06-14] MEDS: LORazepam 2 mg/ml vial IV PRN ×2 (01:51→21:47)
[2021-06-14] MEDS: ipratropium/albuterol 3ml nebule NEB SCH ×6 (03:06→23:28)
[2021-06-14] MEDS: diltiazem 30mg tablet PO SCH ×4 (03:06→20:46)
--- NOTE | 2021-06-14 06:15 | NUR ---
Patient in room PCU 3024. I have received report from SABINO Levy and had the opportunity to ask questions and assume patient care.
[2021-06-14 07:08] LABS: BASOPHILS % (AUTO) 0.2 % (0-1); EOSINOPHILS % (AUTO) 0.1 % (0-6); HEMOGLOBIN 14.7 g/dl (12.0-16.0); LYMPHOCYTES # (AUTO) 1.1 X10'3 (1.1-4.8); MEAN CORPUSCULAR HEMOGLOBIN 29.2 PG (27.0-31.0); MEAN CORPUSCULAR HGB CONC 33.4 g/dL (33.0-36.5); MEAN CORPUSCULAR VOLUME 87.5 FL (78-98); MEAN PLATELET VOLUME 7.2 FL (7.4-10.4); MONOCYTES # (AUTO) 1.3 X10'3 (0-0.9); NEUTROPHILS # (AUTO) 11.1 X10'3 (1.8-7.7); NEUTROPHILS % (AUTO) 81.7 % (42-75); PLATELET COUNT 270 X10'3 (140-440); RED BLOOD COUNT 5.03 X10'6 (4.20-5.60); RED CELL DISTRIBUTION WIDTH 15.9 % (11.5-14.5); WHITE BLOOD COUNT 13.5 X10'3 (4.5-11.0)
[2021-06-14] MEDS: budesonide 0.5mg/2ml UD nebule IH SCH ×2 (07:27→21:32)
[2021-06-14 07:31] LABS: ALANINE AMINOTRANSFERASE 135 U/L (12-78); ALBUMIN 2.8 G/DL (3.4-5.0); ALKALINE PHOSPHATASE 58 IU/L (46-116); ANION GAP 3 (8-16); ASPARTATE AMINO TRANSFERASE 48 U/L (10-37); BILIRUBIN,TOTAL 0.2 MG/DL (0.1-1.0); BLOOD UREA NITROGEN 34 MG/DL (7-18); BUN/CREATININE RATIO 59.6 (6.6-38.0); CHLORIDE 98 MMOL/L (99-107); CREATININE 0.57 MG/DL (0.40-0.90); GLUCOSE 81 MG/DL (70-104); MAGNESIUM 2.5 MG/DL (1.5-2.4); POTASSIUM 5.1 MMOL/L (3.5-5.1); SODIUM 135 MMOL/L (135-145); TOTAL CARBON DIOXIDE 33.6 MMOL/L (24-32); TOTAL PROTEIN 5.7 G/DL (6.4-8.2); eGFR > 90 ML/MIN
[2021-06-14 07:43] LABS: TOTAL CELLS COUNTED 100
[2021-06-14 07:44] LABS: ANISOCYTOSIS 1+; PLATELET ESTIMATE NORMAL
[2021-06-14] MEDS: K and/or MAG REPLACEMENT MC SCH ×2 (08:00→20:00)
[2021-06-14] MEDS: cefTRIAXone 1g/NS 100ml IVPB 100 ML IV SCH (08:19)
[2021-06-14] MEDS: prednisone 10mg tablet PO SCH (08:21)
[2021-06-14] MEDS: azithromycin 250mg tablet PO SCH (08:21)
[2021-06-14] MEDS: heparin, porcine 5000 units/ml vial SQ SCH ×2 (08:21→20:46)
[2021-06-14] MEDS: docusate sod 100mg capsule PO SCH ×2 (08:21→20:46)
[2021-06-14] MEDS: lisinopril 10 MG tablet PO SCH (08:21)
[2021-06-14] MEDS: HYDROcodone/acetaminophen 10/325mg tab PO PRN (08:22)
[2021-06-14] MEDS: lactose-reduced food (Ensure Enlive) - 237ml bottle PO SCH ×2 (08:22→20:46)
--- NOTE | 2021-06-14 18:05 | NUR ---
Problems reprioritized. Patient report given, questions answered & plan of care reviewed with Radha.
[2021-06-14] MEDS: cholecalciferol (vitamin D3) 1,000 unit (25mcg) tablet PO SCH (20:46)
[2021-06-15 02:00] VITALS: BP 134/74
[2021-06-15] MEDS: diltiazem 30mg tablet PO SCH ×4 (02:07→20:33)
[2021-06-15] MEDS: ipratropium/albuterol 3ml nebule NEB SCH ×5 (03:00→18:56)
--- NOTE | 2021-06-15 06:20 | NUR ---
Patient in room PCU 3024. I have received report from SABINO Garcia and had the opportunity to ask questions and assume patient care.
[2021-06-15 06:30] VITALS: BP 134/88
[2021-06-15] MEDS: budesonide 0.5mg/2ml UD nebule IH SCH ×2 (07:05→18:56)
[2021-06-15] MEDS: K and/or MAG REPLACEMENT MC SCH ×2 (07:39→20:00)
[2021-06-15] MEDS: lactose-reduced food (Ensure Enlive) - 237ml bottle PO SCH ×2 (08:00→20:33)
[2021-06-15] MEDS: docusate sod 100mg capsule PO SCH ×2 (08:57→20:33)
[2021-06-15] MEDS: lisinopril 10 MG tablet PO SCH (08:57)
[2021-06-15] MEDS: prednisone 10mg tablet PO SCH (08:57)
[2021-06-15] MEDS: cefTRIAXone 1g/NS 100ml IVPB 100 ML IV SCH (08:57)
[2021-06-15] MEDS: heparin, porcine 5000 units/ml vial SQ SCH ×2 (08:58→20:33)
[2021-06-15 11:00] VITALS: BP 136/85
[2021-06-15] MEDS ORDERED: fluconazole 150mg tablet PO ONE (12:20)
[2021-06-15] MEDS: LIDOcaine Viscous 15ml cup MM PRN (12:33)
[2021-06-15 15:00] VITALS: BP 131/91
[2021-06-15 18:00] VITALS: BP 139/85
--- NOTE | 2021-06-15 18:05 | NUR ---
Problems reprioritized. Patient report given, questions answered & plan of care reviewed with SABINO Garcia.
[2021-06-15] MEDS: HYDROcodone/acetaminophen 5mg/325mg tablet PO PRN (19:41)
[2021-06-15] MEDS: cholecalciferol (vitamin D3) 1,000 unit (25mcg) tablet PO SCH (20:33)
[2021-06-15 22:00] VITALS: BP 139/81
[2021-06-16] MEDS: diltiazem 30mg tablet PO SCH ×4 (01:47→20:18)
[2021-06-16] MEDS: HYDROcodone/acetaminophen 5mg/325mg tablet PO PRN ×2 (02:17→20:18)
[2021-06-16] MEDS: ipratropium/albuterol 3ml nebule NEB SCH ×4 (02:31→21:32)
[2021-06-16 03:00] VITALS: BP 134/78
[2021-06-16 06:51] VITALS: BP 125/82
[2021-06-16] MEDS: prednisone 10mg tablet PO SCH (07:13)
[2021-06-16] MEDS: heparin, porcine 5000 units/ml vial SQ SCH ×2 (07:13→20:18)
[2021-06-16] MEDS: docusate sod 100mg capsule PO SCH ×2 (07:13→20:18)
[2021-06-16] MEDS: lisinopril 10 MG tablet PO SCH (07:13)
[2021-06-16] MEDS: K and/or MAG REPLACEMENT MC SCH ×2 (07:16→20:00)
[2021-06-16] MEDS: lactose-reduced food (Ensure Enlive) - 237ml bottle PO SCH ×2 (07:16→20:19)
[2021-06-16] MEDS: budesonide 0.5mg/2ml UD nebule IH SCH ×2 (07:28→21:32)
[2021-06-16 10:59] VITALS: BP 125/79
--- NOTE | 2021-06-16 12:12 | NUR ---
PAGER ID: [phone] MESSAGE: [phone] Isha Alcantara: would you like daily labs ordered for this patient? last labs 06/14. thanks, sidney [phone]
[2021-06-16 13:06] LABS: BASOPHILS % (AUTO) 0.2 % (0-1); EOSINOPHILS % (AUTO) 0.1 % (0-6); HEMATOCRIT 44.1 % (35.0-45.0); HEMOGLOBIN 14.4 g/dl (12.0-16.0); LYMPHOCYTES # (AUTO) 0.5 X10'3 (1.1-4.8); LYMPHOCYTES % (AUTO) 3.8 % (21-51); MEAN CORPUSCULAR HEMOGLOBIN 28.3 PG (27.0-31.0); MEAN CORPUSCULAR HGB CONC 32.6 g/dL (33.0-36.5); MEAN CORPUSCULAR VOLUME 86.7 FL (78-98); MEAN PLATELET VOLUME 7.4 FL (7.4-10.4); MONOCYTES # (AUTO) 0.5 X10'3 (0-0.9); MONOCYTES % (AUTO) 3.3 % (2-12); NEUTROPHILS % (AUTO) 92.6 % (42-75); PLATELET COUNT 268 X10'3 (140-440); RED BLOOD COUNT 5.09 X10'6 (4.20-5.60); RED CELL DISTRIBUTION WIDTH 15.8 % (11.5-14.5); WHITE BLOOD COUNT 14.1 X10'3 (4.5-11.0)
[2021-06-16 13:09] LABS: ALBUMIN 2.7 G/DL (3.4-5.0); ANION GAP 8 (8-16); BLOOD UREA NITROGEN 22 MG/DL (7-18); BUN/CREATININE RATIO 34.4 (6.6-38.0); CALCIUM 9.2 MG/DL (8.5-10.1); CHLORIDE 98 MMOL/L (99-107); CREATININE 0.64 MG/DL (0.40-0.90); GLUCOSE 140 MG/DL (70-104); POTASSIUM 4.4 MMOL/L (3.5-5.1); SODIUM 136 MMOL/L (135-145); TOTAL CARBON DIOXIDE 29.6 MMOL/L (24-32); eGFR > 90 ML/MIN
[2021-06-16] MEDS: magnesium hydroxide 30ml (MOM) UD suspension PO PRN (13:37)
[2021-06-16 13:42] LABS: TOTAL CELLS COUNTED 100
[2021-06-16 13:43] LABS: TOXIC GRANULATION 1+
[2021-06-16 13:44] LABS: PLATELET ESTIMATE NORMAL
[2021-06-16 15:57] VITALS: BP 143/103
[2021-06-16 18:00] VITALS: BP 159/92
--- NOTE | 2021-06-16 18:13 | NUR ---
Problems reprioritized. Patient report given, questions answered & plan of care reviewed with SABINO Garcia.
[2021-06-16] MEDS: LORazepam 2 mg/ml vial IV PRN (20:17)
[2021-06-16] MEDS: cholecalciferol (vitamin D3) 1,000 unit (25mcg) tablet PO SCH (20:18)
[2021-06-16 22:00] VITALS: BP 134/74
[2021-06-17 02:00] VITALS: BP 152/97
[2021-06-17] MEDS: diltiazem 30mg tablet PO SCH ×4 (02:00→19:25)
[2021-06-17] MEDS: HYDROcodone/acetaminophen 10/325mg tab PO PRN ×3 (02:01→19:24)
[2021-06-17] MEDS: ipratropium/albuterol 3ml nebule NEB SCH ×4 (03:08→20:31)
[2021-06-17 06:00] VITALS: BP 116/72
[2021-06-17 06:35] LABS: BASOPHILS % (AUTO) 0.1 % (0-1); EOSINOPHILS # (AUTO) 0.1 X10'3 (0-0.9); EOSINOPHILS % (AUTO) 0.5 % (0-6); HEMATOCRIT 39.3 % (35.0-45.0); HEMOGLOBIN 12.9 g/dl (12.0-16.0); LYMPHOCYTES # (AUTO) 1.5 X10'3 (1.1-4.8); LYMPHOCYTES % (AUTO) 11.9 % (21-51); MEAN CORPUSCULAR HEMOGLOBIN 28.5 PG (27.0-31.0); MEAN CORPUSCULAR HGB CONC 32.7 g/dL (33.0-36.5); MEAN CORPUSCULAR VOLUME 87.3 FL (78-98); MEAN PLATELET VOLUME 7.2 FL (7.4-10.4); MONOCYTES # (AUTO) 1.3 X10'3 (0-0.9); MONOCYTES % (AUTO) 10.5 % (2-12); NEUTROPHILS # (AUTO) 9.8 X10'3 (1.8-7.7); PLATELET COUNT 262 X10'3 (140-440); RED BLOOD COUNT 4.51 X10'6 (4.20-5.60); WHITE BLOOD COUNT 12.7 X10'3 (4.5-11.0)
[2021-06-17 06:36] LABS: ALBUMIN 2.4 G/DL (3.4-5.0); ANION GAP 7 (8-16); BLOOD UREA NITROGEN 25 MG/DL (7-18); BUN/CREATININE RATIO 33.3 (6.6-38.0); CALCIUM 8.6 MG/DL (8.5-10.1); CHLORIDE 100 MMOL/L (99-107); CREATININE 0.75 MG/DL (0.40-0.90); GLUCOSE 105 MG/DL (70-104); POTASSIUM 4.7 MMOL/L (3.5-5.1); SODIUM 139 MMOL/L (135-145); TOTAL CARBON DIOXIDE 32.3 MMOL/L (24-32); eGFR 79 ML/MIN
--- NOTE | 2021-06-17 07:19 | NUR ---
Patient in room PCU 3024. I have received report from SABINO Garcia and had the opportunity to ask questions and assume patient care.
--- NOTE | 2021-06-17 07:27 | NUR ---
0725- RT AT PATIENTS BEDSIDE FOR PATIENTS Q6 SVN TX. PATIENT STATED THAT SHE NEEDED TO USE THE RESTROOM AND IS UNABLE TO TAKE BREATHING TREATMENT AT THE MOMENT. PATIENT SHOWING NO SIGNS OF SOB/DISTRESS. RT WILL RETURN AT A LATER TIME. Addendum: 06/17/21 at 0728 by Karen Knutson RT Amended: Links added.
[2021-06-17] MEDS: lisinopril 10 MG tablet PO SCH (07:43)
[2021-06-17] MEDS: docusate sod 100mg capsule PO SCH ×2 (07:49→19:25)
[2021-06-17] MEDS: prednisone 10mg tablet PO SCH (07:49)
[2021-06-17 08:00] LABS: TOTAL CELLS COUNTED 100
[2021-06-17] MEDS: K and/or MAG REPLACEMENT MC SCH ×2 (08:00→20:00)
[2021-06-17] MEDS: lactose-reduced food (Ensure Enlive) - 237ml bottle PO SCH ×2 (08:00→20:00)
[2021-06-17 08:01] LABS: LARGE PLATELETS FEW; PLATELET ESTIMATE NORMAL
[2021-06-17] MEDS: heparin, porcine 5000 units/ml vial SQ SCH ×2 (08:02→19:24)
[2021-06-17 08:46] LABS: TOXIC GRANULATION 1+; TOXIC VACUOLATION FEW
[2021-06-17] MEDS: budesonide 0.5mg/2ml UD nebule IH SCH ×2 (09:00→20:31)
[2021-06-17 11:00] VITALS: BP 145/82
[2021-06-17 15:00] VITALS: BP 154/97
[2021-06-17 18:00] VITALS: BP 163/95
--- NOTE | 2021-06-17 18:19 | NUR ---
Problems reprioritized. Patient report given, questions answered & plan of care reviewed with SABINO Lu[].
[2021-06-17] MEDS: cholecalciferol (vitamin D3) 1,000 unit (25mcg) tablet PO SCH (21:44)
[2021-06-17 22:00] VITALS: BP 114/77
[2021-06-18 02:00] VITALS: BP 155/98
[2021-06-18] MEDS: LIDOcaine Viscous 15ml cup MM PRN (02:39)
[2021-06-18] MEDS: diltiazem 30mg tablet PO SCH ×4 (02:40→20:22)
[2021-06-18] MEDS: HYDROcodone/acetaminophen 10/325mg tab PO PRN (02:41)
[2021-06-18] MEDS: ipratropium/albuterol 3ml nebule NEB SCH ×4 (03:28→19:31)
[2021-06-18 06:00] VITALS: BP 125/82
[2021-06-18 07:00] LABS: BASOPHILS % (AUTO) 0.3 % (0-1); EOSINOPHILS # (AUTO) 0.1 X10'3 (0-0.9); EOSINOPHILS % (AUTO) 0.4 % (0-6); HEMATOCRIT 39.7 % (35.0-45.0); HEMOGLOBIN 13.2 g/dl (12.0-16.0); LYMPHOCYTES # (AUTO) 1.7 X10'3 (1.1-4.8); LYMPHOCYTES % (AUTO) 13.7 % (21-51); MEAN CORPUSCULAR HGB CONC 33.1 g/dL (33.0-36.5); MEAN CORPUSCULAR VOLUME 87.5 FL (78-98); MEAN PLATELET VOLUME 7.2 FL (7.4-10.4); MONOCYTES # (AUTO) 1.1 X10'3 (0-0.9); MONOCYTES % (AUTO) 8.4 % (2-12); NEUTROPHILS # (AUTO) 9.8 X10'3 (1.8-7.7); NEUTROPHILS % (AUTO) 77.2 % (42-75); PLATELET COUNT 252 X10'3 (140-440); RED BLOOD COUNT 4.54 X10'6 (4.20-5.60); WHITE BLOOD COUNT 12.7 X10'3 (4.5-11.0)
[2021-06-18 07:32] LABS: ANION GAP 3 (8-16); CHLORIDE 100 MMOL/L (99-107); GLUCOSE 88 MG/DL (70-104); POTASSIUM 4.7 MMOL/L (3.5-5.1); SODIUM 135 MMOL/L (135-145)
[2021-06-18 07:33] LABS: ALBUMIN 2.6 G/DL (3.4-5.0); BLOOD UREA NITROGEN 22 MG/DL (7-18); CREATININE 0.44 MG/DL (0.40-0.90); eGFR > 90 ML/MIN
[2021-06-18] MEDS: prednisone 10mg tablet PO SCH (07:35)
[2021-06-18] MEDS: lisinopril 10 MG tablet PO SCH (07:36)
[2021-06-18] MEDS: heparin, porcine 5000 units/ml vial SQ SCH ×2 (07:36→20:23)
[2021-06-18] MEDS: lactose-reduced food (Ensure Enlive) - 237ml bottle PO SCH ×2 (08:00→20:00)
[2021-06-18] MEDS: docusate sod 100mg capsule PO SCH ×2 (08:00→20:22)
[2021-06-18] MEDS: K and/or MAG REPLACEMENT MC SCH ×2 (08:00→19:38)
[2021-06-18] MEDS: budesonide 0.5mg/2ml UD nebule IH SCH ×3 (09:00→19:30)
--- NOTE | 2021-06-18 09:06 | NUR ---
Patient in room PCU 3024. I have received report from SABINO Lu and had the opportunity to ask questions and assume patient care.
[2021-06-18 09:45] LABS: PLATELET ESTIMATE NORMAL; TOTAL CELLS COUNTED 100
[2021-06-18 09:46] LABS: LARGE PLATELETS FEW
[2021-06-18 11:00] VITALS: BP 115/69
[2021-06-18] MEDS: HYDROcodone/acetaminophen 5mg/325mg tablet PO PRN ×2 (12:50→15:43)
[2021-06-18] MEDS: magnesium hydroxide 30ml (MOM) UD suspension PO PRN (13:06)
[2021-06-18 15:00] VITALS: BP 103/75
--- NOTE | 2021-06-18 15:47 | NUR ---
Patient given an additional 5mg tablet of [place] 5 due to increased pain after physical therapy. Patient reports pain level of 7 in shoulder blades and head.
[2021-06-18 18:00] VITALS: BP 125/71
--- NOTE | 2021-06-18 18:23 | NUR ---
Problems reprioritized. Patient report given, questions answered & plan of care reviewed with SABINO Haider [].
[2021-06-18] MEDS: cholecalciferol (vitamin D3) 1,000 unit (25mcg) tablet PO SCH (20:22)
[2021-06-18 22:00] VITALS: BP 142/93
[2021-06-19] VITALS (7 sets, daily range): BP systolic 108–149; BP diastolic 64–96
[2021-06-19] MEDS: HYDROcodone/acetaminophen 5mg/325mg tablet PO PRN (02:45)
[2021-06-19] MEDS: diltiazem 30mg tablet PO SCH ×4 (02:45→19:47)
[2021-06-19] MEDS: ipratropium/albuterol 3ml nebule NEB SCH ×4 (03:18→20:12)
--- NOTE | 2021-06-19 05:45 | NUR ---
Patient resting quietly in bed, had c/o nausea and pain earlier in shift, PRN meds given and effective. Patient denies issues or concerns during shift, slept well.
--- NOTE | 2021-06-19 06:42 | NUR ---
Patient in room PCU 3024. I have received report from Meliza and had the opportunity to ask questions and assume patient care.
[2021-06-19 06:45] LABS: ALBUMIN 2.7 G/DL (3.4-5.0); ANION GAP 5 (8-16); BASOPHILS % (AUTO) 0.2 % (0-1); BLOOD UREA NITROGEN 24 MG/DL (7-18); BUN/CREATININE RATIO 42.1 (6.6-38.0); CALCIUM 8.8 MG/DL (8.5-10.1); CHLORIDE 101 MMOL/L (99-107); CREATININE 0.57 MG/DL (0.40-0.90); EOSINOPHILS % (AUTO) 0.3 % (0-6); GLUCOSE 91 MG/DL (70-104); HEMATOCRIT 38.2 % (35.0-45.0); HEMOGLOBIN 12.6 g/dl (12.0-16.0); LYMPHOCYTES # (AUTO) 1.7 X10'3 (1.1-4.8); LYMPHOCYTES % (AUTO) 13.2 % (21-51); MEAN CORPUSCULAR HEMOGLOBIN 28.8 PG (27.0-31.0); MEAN CORPUSCULAR HGB CONC 32.9 g/dL (33.0-36.5); MEAN CORPUSCULAR VOLUME 87.5 FL (78-98); MEAN PLATELET VOLUME 7.5 FL (7.4-10.4); MONOCYTES # (AUTO) 1.1 X10'3 (0-0.9); MONOCYTES % (AUTO) 8.5 % (2-12); NEUTROPHILS # (AUTO) 10.1 X10'3 (1.8-7.7); NEUTROPHILS % (AUTO) 77.8 % (42-75); PLATELET COUNT 270 X10'3 (140-440); POTASSIUM 4.8 MMOL/L (3.5-5.1); RED BLOOD COUNT 4.36 X10'6 (4.20-5.60); SODIUM 136 MMOL/L (135-145); TOTAL CARBON DIOXIDE 30.5 MMOL/L (24-32); WHITE BLOOD COUNT 12.9 X10'3 (4.5-11.0); eGFR > 90 ML/MIN
[2021-06-19] MEDS: budesonide 0.5mg/2ml UD nebule IH SCH ×2 (07:34→20:12)
[2021-06-19] MEDS: K and/or MAG REPLACEMENT MC SCH ×2 (08:00→18:37)
[2021-06-19 08:53] LABS: TOTAL CELLS COUNTED 100
[2021-06-19 08:54] LABS: PLATELET ESTIMATE NORMAL
--- NOTE | 2021-06-19 09:02 | NUR ---
Reassessment; Pt continues on Heart Healthy diet w/ avg intake 65% x 10 meals and 56% x 8 ONS meeting est nutrient needs at this time. LBM 06/15 receiving routine and PRN bowel care. Recommend liberalizing to Regular diet. Will continue to monitor. Recs: 1. Liberalize to Regular diet 2. Ensure Enlive BID per MD 3. Bowel care per rx 4. Weekly wts Addendum: 06/19/21 at [address] Amended: Links added.
[2021-06-19] MEDS: lisinopril 10 MG tablet PO SCH (09:13)
[2021-06-19] MEDS: docusate sod 100mg capsule PO SCH ×2 (09:14→19:40)
[2021-06-19] MEDS: prednisone 10mg tablet PO SCH (09:15)
[2021-06-19] MEDS: heparin, porcine 5000 units/ml vial SQ SCH ×2 (09:17→19:40)
[2021-06-19] MEDS: LIDOcaine Viscous 15ml cup MM PRN (09:18)
[2021-06-19] MEDS: HYDROcodone/acetaminophen 10/325mg tab PO PRN ×2 (09:18→17:25)
[2021-06-19] MEDS: lactose-reduced food (Ensure Enlive) - 237ml bottle PO SCH ×2 (09:27→19:41)
--- NOTE | 2021-06-19 18:06 | NUR ---
Problems reprioritized. Patient report given, questions answered & plan of care reviewed with SABINO Haider.
[2021-06-19] MEDS: cholecalciferol (vitamin D3) 1,000 unit (25mcg) tablet PO SCH (19:40)
[2021-06-20] VITALS (7 sets, daily range): BP systolic 114–145; BP diastolic 71–87
[2021-06-20] MEDS: diltiazem 30mg tablet PO SCH ×4 (01:36→19:41)
[2021-06-20] MEDS: magnesium hydroxide 30ml (MOM) UD suspension PO PRN (01:36)
[2021-06-20] MEDS: ipratropium/albuterol 3ml nebule NEB SCH ×4 (02:05→20:22)
[2021-06-20] MEDS: LORazepam 2 mg/ml vial IV PRN (03:21)
--- NOTE | 2021-06-20 05:16 | NUR ---
Patient alert and oriented x4, resting quietly in bed. PRN ativan received was effective. Patient denies any pain issues, biggest concern is having a BM, patient received scheduled colace and PRN milk of mag. Patient able to get up to BSC. Awaiting SNF placement.
[2021-06-20 06:57] LABS: BASOPHILS % (AUTO) 0.2 % (0-1); EOSINOPHILS % (AUTO) 0.3 % (0-6); HEMATOCRIT 38.8 % (35.0-45.0); HEMOGLOBIN 12.8 g/dl (12.0-16.0); LYMPHOCYTES # (AUTO) 1.6 X10'3 (1.1-4.8); MEAN CORPUSCULAR HEMOGLOBIN 28.9 PG (27.0-31.0); MEAN CORPUSCULAR HGB CONC 32.9 g/dL (33.0-36.5); MEAN CORPUSCULAR VOLUME 87.8 FL (78-98); MEAN PLATELET VOLUME 7.4 FL (7.4-10.4); MONOCYTES # (AUTO) 1.3 X10'3 (0-0.9); MONOCYTES % (AUTO) 8.2 % (2-12); NEUTROPHILS # (AUTO) 12.9 X10'3 (1.8-7.7); NEUTROPHILS % (AUTO) 81.3 % (42-75); PLATELET COUNT 278 X10'3 (140-440); RED BLOOD COUNT 4.42 X10'6 (4.20-5.60); WHITE BLOOD COUNT 15.8 X10'3 (4.5-11.0)
[2021-06-20] MEDS: prednisone 10mg tablet PO SCH (07:13)
[2021-06-20] MEDS: lisinopril 10 MG tablet PO SCH (07:14)
[2021-06-20] MEDS: heparin, porcine 5000 units/ml vial SQ SCH ×2 (07:15→19:42)
[2021-06-20] MEDS: docusate sod 100mg capsule PO SCH ×2 (07:17→19:42)
[2021-06-20 07:28] LABS: ALBUMIN 2.9 G/DL (3.4-5.0); ANION GAP 3 (8-16); BLOOD UREA NITROGEN 25 MG/DL (7-18); BUN/CREATININE RATIO 34.7 (6.6-38.0); CALCIUM 9.2 MG/DL (8.5-10.1); CHLORIDE 99 MMOL/L (99-107); CREATININE 0.72 MG/DL (0.40-0.90); GLUCOSE 113 MG/DL (70-104); SODIUM 137 MMOL/L (135-145); TOTAL CARBON DIOXIDE 34.9 MMOL/L (24-32); eGFR 82 ML/MIN
[2021-06-20] MEDS: K and/or MAG REPLACEMENT MC SCH ×2 (07:29→19:41)
[2021-06-20 07:41] LABS: ANISOCYTOSIS 1+; PLATELET ESTIMATE NORMAL; TOTAL CELLS COUNTED 100
[2021-06-20] MEDS: lactose-reduced food (Ensure Enlive) - 237ml bottle PO SCH ×2 (08:00→19:43)
[2021-06-20] MEDS: budesonide 0.5mg/2ml UD nebule IH SCH ×2 (08:05→20:22)
[2021-06-20] MEDS: cholecalciferol (vitamin D3) 1,000 unit (25mcg) tablet PO SCH (19:43)
[2021-06-20] MEDS: HYDROcodone/acetaminophen 5mg/325mg tablet PO PRN (19:43)
[2021-06-21] MEDS: diltiazem 30mg tablet PO SCH ×4 (01:40→19:44)
[2021-06-21 02:00] VITALS: BP 131/86
[2021-06-21] MEDS: ipratropium/albuterol 3ml nebule NEB SCH ×4 (02:20→20:28)
[2021-06-21] MEDS: LORazepam 2 mg/ml vial IV PRN (04:13)
[2021-06-21 06:57] LABS: BASOPHILS % (AUTO) 0.1 % (0-1); EOSINOPHILS # (AUTO) 0.1 X10'3 (0-0.9); EOSINOPHILS % (AUTO) 0.3 % (0-6); HEMOGLOBIN 12.3 g/dl (12.0-16.0); LYMPHOCYTES % (AUTO) 11.2 % (21-51); MEAN CORPUSCULAR HEMOGLOBIN 29.2 PG (27.0-31.0); MEAN CORPUSCULAR HGB CONC 33.3 g/dL (33.0-36.5); MEAN CORPUSCULAR VOLUME 87.6 FL (78-98); MEAN PLATELET VOLUME 7.4 FL (7.4-10.4); MONOCYTES # (AUTO) 1.4 X10'3 (0-0.9); MONOCYTES % (AUTO) 7.9 % (2-12); NEUTROPHILS # (AUTO) 14.3 X10'3 (1.8-7.7); NEUTROPHILS % (AUTO) 80.5 % (42-75); PLATELET COUNT 295 X10'3 (140-440); RED BLOOD COUNT 4.22 X10'6 (4.20-5.60); RED CELL DISTRIBUTION WIDTH 15.7 % (11.5-14.5); WHITE BLOOD COUNT 17.8 X10'3 (4.5-11.0)
[2021-06-21 07:00] LABS: ALBUMIN 2.8 G/DL (3.4-5.0); ANION GAP 5 (8-16); BLOOD UREA NITROGEN 23 MG/DL (7-18); BUN/CREATININE RATIO 36.5 (6.6-38.0); CHLORIDE 97 MMOL/L (99-107); CREATININE 0.63 MG/DL (0.40-0.90); GLUCOSE 100 MG/DL (70-104); POTASSIUM 4.7 MMOL/L (3.5-5.1); SODIUM 134 MMOL/L (135-145); TOTAL CARBON DIOXIDE 31.7 MMOL/L (24-32); eGFR > 90 ML/MIN
[2021-06-21] MEDS: docusate sod 100mg capsule PO SCH ×2 (07:31→19:44)
[2021-06-21] MEDS: LIDOcaine Viscous 15ml cup MM PRN (07:31)
[2021-06-21] MEDS: HYDROcodone/acetaminophen 10/325mg tab PO PRN ×3 (07:32→19:44)
[2021-06-21] MEDS: lisinopril 10 MG tablet PO SCH (07:32)
[2021-06-21] MEDS: prednisone 10mg tablet PO SCH (07:33)
[2021-06-21] MEDS: heparin, porcine 5000 units/ml vial SQ SCH ×2 (07:36→19:45)
[2021-06-21 07:54] LABS: ANISOCYTOSIS 1+; PLATELET ESTIMATE NORMAL; TOTAL CELLS COUNTED 100
[2021-06-21] MEDS: lactose-reduced food (Ensure Enlive) - 237ml bottle PO SCH ×2 (08:00→19:45)
[2021-06-21] MEDS: K and/or MAG REPLACEMENT MC SCH ×2 (08:00→19:43)
[2021-06-21] MEDS: budesonide 0.5mg/2ml UD nebule IH SCH ×2 (08:35→20:28)
--- NOTE | 2021-06-21 15:28 | NUR ---
PAGER ID: [phone] MESSAGE: [phone] Hira Alcantara is complaining about increased mucous production she feels like she might be getting sick. She asked about azithromyocin I let her know I would ask you her wbc count is 17.8. Please advise. Connie [phone] thank you
[2021-06-21 18:00] VITALS: BP 127/87
[2021-06-21] MEDS: cholecalciferol (vitamin D3) 1,000 unit (25mcg) tablet PO SCH (21:52)
[2021-06-21 22:00] VITALS: BP 125/81
[2021-06-22 02:00] VITALS: BP 130/80
[2021-06-22] MEDS: diltiazem 30mg tablet PO SCH ×4 (02:00→19:46)
[2021-06-22] MEDS: ipratropium/albuterol 3ml nebule NEB SCH ×4 (02:24→20:17)
[2021-06-22 06:00] VITALS: BP 149/84
[2021-06-22] MEDS: K and/or MAG REPLACEMENT MC SCH ×2 (07:17→19:14)
[2021-06-22] MEDS: lactose-reduced food (Ensure Enlive) - 237ml bottle PO SCH ×2 (08:00→19:16)
[2021-06-22] MEDS: prednisone 10mg tablet PO SCH (08:36)
[2021-06-22] MEDS: docusate sod 100mg capsule PO SCH ×2 (08:38→19:46)
[2021-06-22] MEDS: lisinopril 10 MG tablet PO SCH (08:38)
[2021-06-22] MEDS: heparin, porcine 5000 units/ml vial SQ SCH ×2 (08:39→19:47)
[2021-06-22] MEDS: budesonide 0.5mg/2ml UD nebule IH SCH ×2 (08:40→20:17)
[2021-06-22] MEDS: HYDROcodone/acetaminophen 10/325mg tab PO PRN ×2 (09:44→19:47)
[2021-06-22 11:00] VITALS: BP 145/89
[2021-06-22 18:00] VITALS: BP 119/79
[2021-06-22] MEDS: cholecalciferol (vitamin D3) 1,000 unit (25mcg) tablet PO SCH (21:00)
[2021-06-22 22:00] VITALS: BP 114/75
[2021-06-23] MEDS: diltiazem 30mg tablet PO SCH ×3 (02:17→15:30)
[2021-06-23] MEDS: ipratropium/albuterol 3ml nebule NEB SCH ×3 (02:32→13:56)
[2021-06-23] MEDS: budesonide 0.5mg/2ml UD nebule IH SCH (07:57)
[2021-06-23] MEDS ORDERED: azithromycin 250mg tablet PO SCH (08:00)
[2021-06-23] MEDS ORDERED: prednisone 10mg tablet PO SCH (08:00)
[2021-06-23] MEDS: K and/or MAG REPLACEMENT MC SCH (08:00)
[2021-06-23] MEDS: lisinopril 10 MG tablet PO SCH (08:03)
[2021-06-23] MEDS: docusate sod 100mg capsule PO SCH (08:04)
[2021-06-23] MEDS: heparin, porcine 5000 units/ml vial SQ SCH (08:04)
[2021-06-23] MEDS: lactose-reduced food (Ensure Enlive) - 237ml bottle PO SCH (08:16)
[2021-06-23] MEDS: HYDROcodone/acetaminophen 10/325mg tab PO PRN ×2 (08:57→12:29)
[2021-06-23 11:00] VITALS: BP 108/73
[2021-06-23 15:00] VITALS: BP 119/47
== END 2021-06-23 17:42 | DRG 199 ==
LOC: ER 12:28 → ED HOLD 16:40 → UNDOADMIN 17:12 → ED HOLD 17:12 → PCU 3S 06-10 01:00
PROVIDERS: ADMIT Family Medicine; ATTEND Family Medicine
PROC: B32T1ZZ Computerized Tomography (CT Scan) of Left Pulmonary Artery using Low Osmolar Contrast (ICD-10-PCS; principal; 2021-06-09)
PROC: B3201ZZ Computerized Tomography (CT Scan) of Thoracic Aorta using Low Osmolar Contrast (ICD-10-PCS; 2021-06-09)
PROC: B32S1ZZ Computerized Tomography (CT Scan) of Right Pulmonary Artery using Low Osmolar Contrast (ICD-10-PCS; 2021-06-09)
DX: I16.1 Hypertensive emergency (principal); J96.20 Acute and chronic respiratory failure, unspecified whether with hypoxia or hypercapnia; E43 Unspecified severe protein-calorie malnutrition; I27.81 Cor pulmonale (chronic); R62.7 Adult failure to thrive; Z20.822 Contact with and (suspected) exposure to COVID-19; Z60.2 Problems related to living alone; E78.00 Pure hypercholesterolemia, unspecified; F41.9 Anxiety disorder, unspecified; G89.4 Chronic pain syndrome; I10 Essential (primary) hypertension; J43.9 Emphysema, unspecified; Z51.5 Encounter for palliative care; Z80.41 Family history of malignant neoplasm of ovary; Z80.8 Family history of malignant neoplasm of other organs or systems; Z87.11 Personal history of peptic ulcer disease; Z87.891 Personal history of nicotine dependence; Z90.49 Acquired absence of other specified parts of digestive tract; Z90.710 Acquired absence of both cervix and uterus; Z91.19 Patient's noncompliance with other medical treatment and regimen; Z98.51 Tubal ligation status; Z56.0 Unemployment, unspecified; Z59.00 Homelessness unspecified; Z68.20 Body mass index [BMI] 20.0-20.9, adult; Z88.2 Allergy status to sulfonamides
CPT/HCPCS: 36415; 36600; 71045; 71275; 80048; 80053; 80061; 81003; 82803; 83036; 83605; 83735; 83880; 84100; 84484; 85007; 85018; 85025; 87040; 87081; 87635; 93005; 93306; 94640; 94760; 96361; 96374; 97110; 97116; 97161; 97530; 99285; G0378; J0360; J0696; J1644; J2060; J2405; J2930; J3490; J7030; J7512; Q9967

== ENCOUNTER 2023-01-31 16:27 | Inpatient (IN) | payer MEDICAID ==
[~2023-01-31] VITALS: Ht 149.9 cm; Wt 43.2 kg
[~2023-01-31 16:27] MED LIST changes: -ALEN35TA53 PO; -AZIT250T PO; -BUDE10.22 INH; +BUDE10.27 PO; -BUPR1PAT TOP; -ESTR1TAB19 PO; -HYDR-4383 PO; -LACT1CAP26 PO; -LEVO750T46 PO; -LIDO700A32 TOP; -LORA2TAB96 PO; -NABU-139 PO; -NYST1000 PO; +TIOT4MIS2 PO
[2023-01-31] MEDS ORDERED: albuterol 2.5 MG/3 ML nebule CONTNEB PRN (16:40)
[2023-01-31] MEDS ORDERED: magnesium 2GM in 50ml NS 50 ML IV ONE (16:40)
[2023-01-31] MEDS ORDERED: methylPREDNISolone sod succ 125mg/2ml vial IV ONE (16:40)
[2023-01-31] MEDS ORDERED: ipratropium 0.5 MG/2.5ML nebule IH ONE (16:40)
[2023-01-31 17:13] LABS: BASOPHILS % (AUTO) 0.2 % (0-1); EOSINOPHILS % (AUTO) 0 % (0-6); HEMATOCRIT 44.1 % (35.0-45.0); HEMOGLOBIN 14.1 g/dl (12.0-16.0); LYMPHOCYTES # (AUTO) 0.9 X10'3 (1.1-4.8); LYMPHOCYTES % (AUTO) 5.7 % (21-51); MEAN CORPUSCULAR HEMOGLOBIN 28.8 PG (27.0-31.0); MEAN CORPUSCULAR HGB CONC 31.9 g/dL (33.0-36.5); MEAN CORPUSCULAR VOLUME 90.5 FL (78-98); MEAN PLATELET VOLUME 7.3 FL (7.4-10.4); MONOCYTES # (AUTO) 0.6 X10'3 (0-0.9); MONOCYTES % (AUTO) 3.5 % (2-12); NEUTROPHILS # (AUTO) 14.8 X10'3 (1.8-7.7); NEUTROPHILS % (AUTO) 90.6 % (42-75); PLATELET COUNT 260 X10'3 (140-440); RED BLOOD COUNT 4.87 X10'6 (4.20-5.60); RED CELL DISTRIBUTION WIDTH 19.1 % (11.5-14.5); WHITE BLOOD COUNT 16.3 X10'3 (4.5-11.0)
[2023-01-31 17:25] LABS: ALANINE AMINOTRANSFERASE 44 U/L (12-78); ALBUMIN 2.2 G/DL (3.4-5.0); ALBUMIN/GLOBULIN RATIO 0.6 (1.1-1.5); ALKALINE PHOSPHATASE 141 IU/L (46-116); ANION GAP 3 (8-16); ASPARTATE AMINO TRANSFERASE 36 U/L (10-37); BILIRUBIN,TOTAL 0.6 MG/DL (0.1-1.0); BLOOD UREA NITROGEN 35 MG/DL (7-18); BUN/CREATININE RATIO 49.3 (10.0-20.0); CALCIUM 8.9 MG/DL (8.5-10.1); CHLORIDE 103 MMOL/L (99-107); CREATININE 0.71 MG/DL (0.40-0.90); GLUCOSE 95 MG/DL (70-104); SODIUM 144 MMOL/L (135-145); TOTAL PROTEIN 6.2 G/DL (6.4-8.2); eCRCL 55 ML/MIN; eGFR 83 ML/MIN
[2023-01-31 17:27] LABS: POTASSIUM 4.8 MMOL/L (3.5-5.1)
[2023-01-31 17:32] LABS: ANISOCYTOSIS 2+; NUCLEATED RED BLOOD CELLS 1 /100WBC (0-0); PLATELET ESTIMATE NORMAL; PRO BRAIN NATRIURETIC PEPTIDE 614 PG/ML (0-125); TOTAL CELLS COUNTED 100
[2023-01-31 17:33] LABS: POLYCHROMASIA 1+; TOXIC VACUOLATION FEW
[2023-01-31 17:34] VITALS: PULSE 143; RESP 22; O2SAT 97
[2023-01-31 18:36] VITALS: PULSE 141; RESP 22
[2023-01-31 19:02] VITALS: PULSE 143; RESP 22; O2SAT 100
[2023-01-31] MEDS ORDERED: morphine 2 MG/ML inj. syringe IV ONE (19:10)
[2023-01-31] MEDS ORDERED: BACL-11 PO (20:39)
[2023-01-31] MEDS ORDERED: PRED5TAB PO (20:39)
[2023-01-31] MEDS ORDERED: AZIT-164 PO (20:39)
[2023-01-31] MEDS ORDERED: HYDR-3973 PO (20:39)
[2023-01-31] MEDS ORDERED: DILT-36 PO (20:39)
[2023-01-31] MEDS ORDERED: CLON-478 PO (20:39)
[2023-01-31] MEDS ORDERED: LISI-643 PO (20:39)
[2023-01-31] MEDS ORDERED: CHOL20002 PO (20:39)
[2023-01-31] MEDS ORDERED: temazepam 15mg capsule PO PRN (21:00)
[2023-01-31] MEDS ORDERED: diphenhydrAMINE 50 mg/ml inj IV PRN (21:35)
[2023-01-31] MEDS ORDERED: diphenhydrAMINE 25mg capsule PO PRN (21:35)
[2023-01-31] MEDS ORDERED: dextrose 5%-1/2 normal saline 1,000 ML IV SCH (21:35)
[2023-01-31] MEDS ORDERED: ondansetron 4mg rapidly disintigrating tab PO PRN (21:35)
[2023-01-31] MEDS ORDERED: bisacodyl 10mg suppository rectal RC PRN (21:35)
[2023-01-31] MEDS ORDERED: acetaminophen 325mg tablet PO PRN ×2 (21:35)
[2023-01-31] MEDS ORDERED: mag hydrox/Alum hydrox/simeth 30ml oral suspension PO PRN (21:35)
[2023-01-31] MEDS ORDERED: acetaminophen 650mg rectal suppository RC PRN (21:35)
[2023-01-31] MEDS ORDERED: magnesium hydroxide 30ml (MOM) UD suspension PO PRN (21:35)
[2023-01-31] MEDS ORDERED: heparin 10,000 units/1 ML INJ IV PRN (21:50)
[2023-01-31] MEDS ORDERED: heparin 25,000 UNIT/250ml bag 250 ML IV PRN (21:50)
[2023-01-31] MEDS ORDERED: heparin 10,000 units/1 ML INJ IV ONE (22:00)
[2023-01-31 22:06] LABS: PHOSPHORUS 2.8 MG/DL (2.3-4.5)
[2023-01-31 22:08] LABS: APTT 23 SECONDS (22-32); D-DIMER 1.15 MG/L FEU (0-0.50); PROTHROMBIN TIME 9.8 SECONDS (9.0-12.0)
[2023-01-31 22:10] LABS: INR 0.9 INR
[2023-01-31 22:44] VITALS: PULSE 118; RESP 23; O2SAT 99
[2023-01-31 23:35] LABS: EOSINOPHILS % (AUTO) 0 % (0-6); HEMOGLOBIN 13.7 g/dl (12.0-16.0); LYMPHOCYTES # (AUTO) 0.5 X10'3 (1.1-4.8); LYMPHOCYTES % (AUTO) 3.2 % (21-51); MEAN PLATELET VOLUME 7.3 FL (7.4-10.4); NEUTROPHILS # (AUTO) 16.1 X10'3 (1.8-7.7)
[2023-01-31 23:36] LABS: BASOPHILS % (AUTO) 0 % (0-1); HEMATOCRIT 43.1 % (35.0-45.0); MEAN CORPUSCULAR HEMOGLOBIN 29.1 PG (27.0-31.0); MEAN CORPUSCULAR HGB CONC 31.9 g/dL (33.0-36.5); MEAN CORPUSCULAR VOLUME 91.1 FL (78-98); MONOCYTES # (AUTO) 0.5 X10'3 (0-0.9); MONOCYTES % (AUTO) 3.1 % (2-12); NEUTROPHILS % (AUTO) 93.7 % (42-75); PLATELET COUNT 208 X10'3 (140-440); RED BLOOD COUNT 4.73 X10'6 (4.20-5.60); RED CELL DISTRIBUTION WIDTH 19.3 % (11.5-14.5); WHITE BLOOD COUNT 17.2 X10'3 (4.5-11.0)
[2023-02-01] VITALS (11 sets, daily range): BP systolic 130–195; BP diastolic 80–109; PULSE 102–116; RESP 8–20; TEMP 97.1–98.3; O2SAT 94–100
[2023-02-01] MEDS ORDERED: piperacillin/tazo 3.375gm/50ml 50 ML IV SCH
[2023-02-01] MEDS: morphine 2 MG/ML inj. syringe IV PRN ×3 (00:59→20:06)
[2023-02-01 03:15] LABS: PLATELET ESTIMATE NORMAL; TOTAL CELLS COUNTED 100
[2023-02-01 03:16] LABS: ANISOCYTOSIS 2+
[2023-02-01 07:05] LABS: URINE AMPHETAMINE SCREEN NEGATIVE (Neg); URINE BARBITUATE SCREEN NEGATIVE (Neg); URINE BENZODIAZEPINES SCREEN NEGATIVE (Neg); URINE CANNABINOID SCREEN NEGATIVE (Neg); URINE COCAINE SCREEN NEGATIVE (Neg); URINE METHADONE SCREEN NEGATIVE (Neg); URINE OPIATE SCREEN POSITIVE (Neg); URINE PHENCYCLIDINE SCREEN NEGATIVE (Neg)
[2023-02-01 07:14] LABS: ALANINE AMINOTRANSFERASE 39 U/L (12-78); ALBUMIN 1.9 G/DL (3.4-5.0); ALBUMIN/GLOBULIN RATIO 0.5 (1.1-1.5); ALKALINE PHOSPHATASE 112 IU/L (46-116); ANION GAP 9 (8-16); ASPARTATE AMINO TRANSFERASE 27 U/L (10-37); BILIRUBIN,TOTAL 0.4 MG/DL (0.1-1.0); BLOOD UREA NITROGEN 37 MG/DL (7-18); BUN/CREATININE RATIO 48.1 (10.0-20.0); CALCIUM 8.7 MG/DL (8.5-10.1); CHLORIDE 102 MMOL/L (99-107); CREATININE 0.77 MG/DL (0.40-0.90); GLUCOSE 88 MG/DL (70-104); POTASSIUM 4.9 MMOL/L (3.5-5.1); SODIUM 143 MMOL/L (135-145); TOTAL CARBON DIOXIDE 32.1 MMOL/L (24-32); TOTAL PROTEIN 5.8 G/DL (6.4-8.2); eCRCL 51 ML/MIN; eGFR 76 ML/MIN
[2023-02-01] MEDS: nitroGLYCERIN 0.1mg/hour patch TD SCH (08:00)
[2023-02-01 08:12] LABS: BASOPHILS % (AUTO) 0.1 % (0-1); EOSINOPHILS % (AUTO) 0 % (0-6); HEMATOCRIT 36.8 % (35.0-45.0); HEMOGLOBIN 11.8 g/dl (12.0-16.0); LYMPHOCYTES # (AUTO) 0.3 X10'3 (1.1-4.8); LYMPHOCYTES % (AUTO) 2.3 % (21-51); MEAN CORPUSCULAR VOLUME 90.7 FL (78-98); MEAN PLATELET VOLUME 7.4 FL (7.4-10.4); MONOCYTES # (AUTO) 0.2 X10'3 (0-0.9); NEUTROPHILS # (AUTO) 11.2 X10'3 (1.8-7.7); NEUTROPHILS % (AUTO) 95.6 % (42-75); PLATELET COUNT 202 X10'3 (140-440); RED BLOOD COUNT 4.06 X10'6 (4.20-5.60); RED CELL DISTRIBUTION WIDTH 19.1 % (11.5-14.5); WHITE BLOOD COUNT 11.7 X10'3 (4.5-11.0)
[2023-02-01] MEDS ORDERED: iohexol 350MG/ML 100ml bottle IV ONE (09:02)
[2023-02-01] MEDS: methylPREDNISolone sod succ 125mg/2ml vial IV SCH ×2 (10:00→20:05)
[2023-02-01] MEDS ORDERED: magnesium 2GM in 50ml NS 50 ML IV PRN (10:30)
[2023-02-01] MEDS ORDERED: magnesium 4gm in 100ml NS 100 ML IV PRN (10:30)
[2023-02-01] MEDS ORDERED: magnesium Cl slow-release 64mg tablet PO PRN (10:30)
[2023-02-01] MEDS ORDERED: potassium Cl 40MEQ/1/2NS 520ml 520 ML IV PRN (10:30)
[2023-02-01] MEDS ORDERED: potassium Cl 20 mEq SR tablet PO PRN ×2 (10:30)
[2023-02-01] MEDS: CefTRIAXone/D5W-Rocephin 1gm 50 ML IV SCH (11:25)
[2023-02-01] MEDS: diltiazem CD 180mg cap (once-daily) PO SCH (14:52)
[2023-02-01] MEDS: pantoprazole 40mg Tablet.DR PO SCH (14:53)
[2023-02-01] MEDS: aspirin 81mg, enteric-coated 1 TAB TABLET.DR PO SCH (14:53)
[2023-02-01] MEDS: docusate sod 100mg capsule PO SCH ×2 (14:53→20:06)
[2023-02-01] MEDS: atorvastatin 10mg tablet PO SCH (14:53)
[2023-02-01] MEDS: azithromycin/NS 500mg/250ml 250 ML IV SCH (15:19)
[2023-02-01] MEDS: normal saline 1000ml 1,000 ML IV SCH (17:00)
[2023-02-01] MEDS: K and/or MAG REPLACEMENT MC SCH (20:00)
[2023-02-01] MEDS: guaiFENesin ER 600mg tablet PO SCH (20:05)
[2023-02-01] MEDS: enoxaparin 40mg/0.4ml syringe SQ SCH (20:06)
[2023-02-01] MEDS: ondansetron/PF 4mg/2ml inj IV PRN (20:06)
[2023-02-02] VITALS (12 sets, daily range): BP systolic 134–189; BP diastolic 73–91; PULSE 76–102; RESP 14–26; TEMP 97.2–98.6; O2SAT 82–95
[2023-02-02] MEDS: morphine 2 MG/ML inj. syringe IV PRN ×4 (00:33→23:15)
[2023-02-02] MEDS: HYDROcodone/acetaminophen 5mg/325mg tablet PO PRN ×4 (02:23→20:12)
[2023-02-02] MEDS: normal saline 1000ml 1,000 ML IV SCH ×2 (02:25→13:46)
[2023-02-02] MEDS ORDERED: lisinopril 10 MG tablet PO SCH (08:00)
[2023-02-02] MEDS: nitroGLYCERIN 0.1mg/hour patch TD SCH (08:00)
[2023-02-02] MEDS: K and/or MAG REPLACEMENT MC SCH ×2 (08:00→20:52)
[2023-02-02] MEDS: CefTRIAXone/D5W-Rocephin 1gm 50 ML IV SCH (08:45)
[2023-02-02 08:47] LABS: BASOPHILS % (AUTO) 0.1 % (0-1); EOSINOPHILS % (AUTO) 0 % (0-6); HEMATOCRIT 29.8 % (35.0-45.0); HEMOGLOBIN 9.8 g/dl (12.0-16.0); LYMPHOCYTES # (AUTO) 0.1 X10'3 (1.1-4.8); LYMPHOCYTES % (AUTO) 1.4 % (21-51); MEAN CORPUSCULAR HEMOGLOBIN 29.9 PG (27.0-31.0); MEAN CORPUSCULAR HGB CONC 32.8 g/dL (33.0-36.5); MEAN PLATELET VOLUME 7.3 FL (7.4-10.4); MONOCYTES # (AUTO) 0.2 X10'3 (0-0.9); NEUTROPHILS # (AUTO) 8.7 X10'3 (1.8-7.7); NEUTROPHILS % (AUTO) 96.5 % (42-75); PLATELET COUNT 193 X10'3 (140-440); RED BLOOD COUNT 3.28 X10'6 (4.20-5.60); RED CELL DISTRIBUTION WIDTH 19.2 % (11.5-14.5)
[2023-02-02] MEDS: methylPREDNISolone sod succ 125mg/2ml vial IV SCH ×2 (08:52→20:00)
[2023-02-02] MEDS: guaiFENesin ER 600mg tablet PO SCH ×2 (08:53→20:13)
[2023-02-02] MEDS: pantoprazole 40mg Tablet.DR PO SCH (08:53)
[2023-02-02] MEDS: docusate sod 100mg capsule PO SCH ×2 (08:54→20:53)
[2023-02-02] MEDS: atorvastatin 10mg tablet PO SCH (08:54)
[2023-02-02] MEDS: aspirin 81mg, enteric-coated 1 TAB TABLET.DR PO SCH (08:54)
[2023-02-02] MEDS: diltiazem CD 180mg cap (once-daily) PO SCH (08:54)
[2023-02-02 09:19] LABS: ANISOCYTOSIS 2+; PLATELET ESTIMATE NORMAL; TOTAL CELLS COUNTED 100
[2023-02-02 09:20] LABS: POIKILOCYTOSIS FEW; SPHEROCYTES FEW
[2023-02-02 09:27] LABS: ALANINE AMINOTRANSFERASE 32 U/L (12-78); ALBUMIN 1.6 G/DL (3.4-5.0); ALBUMIN/GLOBULIN RATIO 0.5 (1.1-1.5); ALKALINE PHOSPHATASE 93 IU/L (46-116); ANION GAP 5 (8-16); ASPARTATE AMINO TRANSFERASE 21 U/L (10-37); BILIRUBIN,TOTAL 0.2 MG/DL (0.1-1.0); BLOOD UREA NITROGEN 29 MG/DL (7-18); BUN/CREATININE RATIO 45.3 (10.0-20.0); CALCIUM 7.9 MG/DL (8.5-10.1); CHLORIDE 105 MMOL/L (99-107); CREATININE 0.64 MG/DL (0.40-0.90); GLUCOSE 150 MG/DL (70-104); MAGNESIUM 2.2 MG/DL (1.5-2.4); PHOSPHORUS 2.5 MG/DL (2.3-4.5); POTASSIUM 4.5 MMOL/L (3.5-5.1); SODIUM 141 MMOL/L (135-145); TOTAL CARBON DIOXIDE 30.7 MMOL/L (24-32); TOTAL PROTEIN 4.8 G/DL (6.4-8.2); eCRCL 61 ML/MIN; eGFR > 90 ML/MIN
[2023-02-02] MEDS: azithromycin/NS 500mg/250ml 250 ML IV SCH (10:04)
[2023-02-02] MEDS ORDERED: PRED10TA PO (11:05)
[2023-02-02] MEDS ORDERED: PRED20TA PO (11:06)
[2023-02-02] MEDS ORDERED: AZIT250T12 PO (11:09)
[2023-02-02] MEDS ORDERED: BACL10TA2 (11:09)
[2023-02-02] MEDS ORDERED: PRE5T PO (11:09)
[2023-02-02] MEDS ORDERED: CHOL20003 PO (11:15)
[2023-02-02] MEDS ORDERED: methylPREDNISolone sod succ 125mg/2ml vial ONE (19:20)
[2023-02-02] MEDS: enoxaparin 40mg/0.4ml syringe SQ SCH (20:08)
[2023-02-03] VITALS (17 sets, daily range): BP systolic 190–195; BP diastolic 81–101; PULSE 67–111; RESP 18–24; TEMP 97.2–98.6; O2SAT 87–98
[2023-02-03] MEDS: morphine 2 MG/ML inj. syringe IV PRN ×5 (05:03→23:38)
[2023-02-03] MEDS: ipratropium/albuterol 3ml nebule NEB PRN ×3 (07:58→23:22)
[2023-02-03] MEDS: acetylcysteine 200 MG/ml 4ml vial INH SCH ×2 (07:59→19:34)
[2023-02-03] MEDS: guaiFENesin ER 600mg tablet PO SCH ×2 (08:00→19:14)
[2023-02-03] MEDS: nitroGLYCERIN 0.1mg/hour patch TD SCH (08:00)
[2023-02-03] MEDS: atorvastatin 10mg tablet PO SCH (08:00)
[2023-02-03] MEDS ORDERED: lisinopril 20mg tablet PO SCH (08:00)
[2023-02-03] MEDS: K and/or MAG REPLACEMENT MC SCH ×2 (08:00→20:00)
[2023-02-03] MEDS: azithromycin/NS 500mg/250ml 250 ML IV SCH (08:00)
[2023-02-03] MEDS: CefTRIAXone/D5W-Rocephin 1gm 50 ML IV SCH (08:00)
[2023-02-03] MEDS: docusate sod 100mg capsule PO SCH ×2 (08:00→19:14)
[2023-02-03] MEDS: diltiazem CD 180mg cap (once-daily) PO SCH (08:00)
[2023-02-03] MEDS: aspirin 81mg, enteric-coated 1 TAB TABLET.DR PO SCH (08:00)
[2023-02-03] MEDS: methylPREDNISolone sod succ 125mg/2ml vial IV SCH (08:00)
[2023-02-03 08:03] LABS: BASOPHILS % (AUTO) 0 % (0-1); EOSINOPHILS % (AUTO) 0 % (0-6); HEMATOCRIT 27.6 % (35.0-45.0); HEMOGLOBIN 8.9 g/dl (12.0-16.0); LYMPHOCYTES # (AUTO) 0.1 X10'3 (1.1-4.8); LYMPHOCYTES % (AUTO) 1.5 % (21-51); MEAN CORPUSCULAR HEMOGLOBIN 29.4 PG (27.0-31.0); MEAN CORPUSCULAR HGB CONC 32.3 g/dL (33.0-36.5); MEAN CORPUSCULAR VOLUME 90.8 FL (78-98); MEAN PLATELET VOLUME 7.5 FL (7.4-10.4); MONOCYTES # (AUTO) 0.1 X10'3 (0-0.9); NEUTROPHILS # (AUTO) 6.7 X10'3 (1.8-7.7); NEUTROPHILS % (AUTO) 96.5 % (42-75); PLATELET COUNT 176 X10'3 (140-440); RED BLOOD COUNT 3.04 X10'6 (4.20-5.60); RED CELL DISTRIBUTION WIDTH 19.1 % (11.5-14.5)
[2023-02-03 08:19] LABS: ALANINE AMINOTRANSFERASE 30 U/L (12-78); ALBUMIN 1.5 G/DL (3.4-5.0); ALBUMIN/GLOBULIN RATIO 0.5 (1.1-1.5); ALKALINE PHOSPHATASE 119 IU/L (46-116); ANION GAP 4 (8-16); ASPARTATE AMINO TRANSFERASE 20 U/L (10-37); BILIRUBIN,TOTAL 0.2 MG/DL (0.1-1.0); BLOOD UREA NITROGEN 21 MG/DL (7-18); CALCIUM 7.6 MG/DL (8.5-10.1); CHLORIDE 107 MMOL/L (99-107); CREATININE 0.42 MG/DL (0.40-0.90); GLUCOSE 106 MG/DL (70-104); MAGNESIUM 1.9 MG/DL (1.5-2.4); PHOSPHORUS 1.9 MG/DL (2.3-4.5); POTASSIUM 4.5 MMOL/L (3.5-5.1); SODIUM 141 MMOL/L (135-145); TOTAL CARBON DIOXIDE 29.6 MMOL/L (24-32); TOTAL PROTEIN 4.6 G/DL (6.4-8.2); eCRCL 93 ML/MIN; eGFR > 90 ML/MIN
[2023-02-03] MEDS: pantoprazole 40mg Tablet.DR PO SCH (10:33)
[2023-02-03] MEDS: LIDOcaine Viscous 15ml cup MM PRN (14:40)
[2023-02-03] MEDS: HYDROcodone/acetaminophen 5mg/325mg tablet PO PRN (15:43)
[2023-02-03] MEDS: JUVEN Shake w/Arg/Glut/Ca2+Bmb (Juven 19.3gm) pkt 240ml PO SCH (17:30)
[2023-02-03] MEDS ORDERED: hydrALAZINE 20mg/ml inj. IV PRN (19:00)
[2023-02-03] MEDS: ondansetron/PF 4mg/2ml inj IV PRN (19:11)
[2023-02-03] MEDS: enoxaparin 40mg/0.4ml syringe SQ SCH (19:12)
[2023-02-04] VITALS (21 sets, daily range): BP systolic 136–175; BP diastolic 69–83; PULSE 89–113; RESP 16–22; TEMP 96.7–97.9; O2SAT 89–94
[2023-02-04] MEDS: morphine 2 MG/ML inj. syringe IV PRN ×3 (05:06→22:09)
[2023-02-04] MEDS: ipratropium/albuterol 3ml nebule NEB PRN ×3 (07:13→18:51)
[2023-02-04] MEDS: acetylcysteine 200 MG/ml 4ml vial INH SCH ×2 (07:13→18:51)
[2023-02-04] MEDS: pantoprazole 40mg Tablet.DR PO SCH (07:30)
[2023-02-04] MEDS: JUVEN Shake w/Arg/Glut/Ca2+Bmb (Juven 19.3gm) pkt 240ml PO SCH ×2 (07:30→17:30)
[2023-02-04 07:51] LABS: BASOPHILS % (AUTO) 0.3 % (0-1); EOSINOPHILS % (AUTO) 0 % (0-6); HEMATOCRIT 24.5 % (35.0-45.0); HEMOGLOBIN 8.1 g/dl (12.0-16.0); LYMPHOCYTES # (AUTO) 0.1 X10'3 (1.1-4.8); LYMPHOCYTES % (AUTO) 1.3 % (21-51); MEAN CORPUSCULAR HEMOGLOBIN 29.8 PG (27.0-31.0); MEAN CORPUSCULAR HGB CONC 33.2 g/dL (33.0-36.5); MEAN CORPUSCULAR VOLUME 89.6 FL (78-98); MEAN PLATELET VOLUME 7.7 FL (7.4-10.4); MONOCYTES # (AUTO) 0.3 X10'3 (0-0.9); MONOCYTES % (AUTO) 4.2 % (2-12); NEUTROPHILS # (AUTO) 6.9 X10'3 (1.8-7.7); NEUTROPHILS % (AUTO) 94.2 % (42-75); PLATELET COUNT 173 X10'3 (140-440); RED BLOOD COUNT 2.73 X10'6 (4.20-5.60); RED CELL DISTRIBUTION WIDTH 18.7 % (11.5-14.5); WHITE BLOOD COUNT 7.3 X10'3 (4.5-11.0)
[2023-02-04] MEDS: aspirin 81mg, enteric-coated 1 TAB TABLET.DR PO SCH (08:00)
[2023-02-04] MEDS ORDERED: methylPREDNISolone sod succ 125mg/2ml vial IV SCH (08:00)
[2023-02-04] MEDS: K and/or MAG REPLACEMENT MC SCH ×2 (08:00→20:00)
[2023-02-04] MEDS: nitroGLYCERIN 0.1mg/hour patch TD SCH (08:00)
[2023-02-04] MEDS: atorvastatin 10mg tablet PO SCH (08:00)
[2023-02-04 08:26] LABS: ALANINE AMINOTRANSFERASE 39 U/L (12-78); ALBUMIN 1.6 G/DL (3.4-5.0); ALBUMIN/GLOBULIN RATIO 0.5 (1.1-1.5); ALKALINE PHOSPHATASE 234 IU/L (46-116); ANION GAP 5 (8-16); ASPARTATE AMINO TRANSFERASE 35 U/L (10-37); BILIRUBIN,TOTAL 0.2 MG/DL (0.1-1.0); BLOOD UREA NITROGEN 25 MG/DL (7-18); BUN/CREATININE RATIO 58.1 (10.0-20.0); CALCIUM 7.8 MG/DL (8.5-10.1); CHLORIDE 108 MMOL/L (99-107); CREATININE 0.43 MG/DL (0.40-0.90); GLUCOSE 106 MG/DL (70-104); MAGNESIUM 1.8 MG/DL (1.5-2.4); PHOSPHORUS 1.7 MG/DL (2.3-4.5); POTASSIUM 4.1 MMOL/L (3.5-5.1); SODIUM 141 MMOL/L (135-145); TOTAL CARBON DIOXIDE 28.2 MMOL/L (24-32); TOTAL PROTEIN 4.7 G/DL (6.4-8.2); eCRCL 91 ML/MIN; eGFR > 90 ML/MIN
[2023-02-04] MEDS: azithromycin/NS 500mg/250ml 250 ML IV SCH (08:55)
[2023-02-04] MEDS: CefTRIAXone/D5W-Rocephin 1gm 50 ML IV SCH (08:55)
[2023-02-04] MEDS: lisinopril 20mg tablet PO SCH (08:56)
[2023-02-04] MEDS: diltiazem CD 180mg cap (once-daily) PO SCH (08:56)
[2023-02-04] MEDS: docusate sod 100mg capsule PO SCH (08:56)
[2023-02-04] MEDS: guaiFENesin ER 600mg tablet PO SCH ×2 (08:56→21:08)
[2023-02-04] MEDS: LIDOcaine Viscous 15ml cup MM PRN (09:03)
[2023-02-04] MEDS: HYDROcodone/acetaminophen 5mg/325mg tablet PO PRN (09:12)
[2023-02-04] MEDS ORDERED: albumin (human) 25% 100ml IV 100 ML in normal saline 500ml IV soln 400 ML IV ONE (17:20)
[2023-02-04] MEDS: normal saline 1000ml 1,000 ML IV SCH ×2 (17:53→22:14)
[2023-02-04] MEDS ORDERED: albumin (Human) 5% 250ml 500 ML IV ONE (18:05)
[2023-02-04] MEDS: enoxaparin 40mg/0.4ml syringe SQ SCH (19:29)
[2023-02-04] MEDS: methylPREDNISolone sod succ 125mg/2ml vial IV SCH (19:30)
[2023-02-04] MEDS ORDERED: fluconazole 100mg tablet PO ONE (20:00)
[2023-02-05] VITALS (23 sets, daily range): BP systolic 104–163; BP diastolic 49–75; PULSE 59–98; RESP 16–80; TEMP 90.7–98.2; O2SAT 89–97
[2023-02-05] MEDS: morphine 2 MG/ML inj. syringe IV PRN ×4 (05:11→15:53)
[2023-02-05 06:41] LABS: EOSINOPHILS % (AUTO) 0 % (0-6); LYMPHOCYTES # (AUTO) 0.1 X10'3 (1.1-4.8); MEAN CORPUSCULAR VOLUME 90.7 FL (78-98); MONOCYTES # (AUTO) 0.1 X10'3 (0-0.9); PLATELET COUNT 144 X10'3 (140-440)
[2023-02-05 06:49] LABS: BASOPHILS % (AUTO) 0.1 % (0-1); LYMPHOCYTES % (AUTO) 1.6 % (21-51); MEAN CORPUSCULAR HEMOGLOBIN 29.7 PG (27.0-31.0); MEAN CORPUSCULAR HGB CONC 32.7 g/dL (33.0-36.5); MEAN PLATELET VOLUME 7.6 FL (7.4-10.4); NEUTROPHILS # (AUTO) 3.7 X10'3 (1.8-7.7); NEUTROPHILS % (AUTO) 95.3 % (42-75); RED BLOOD COUNT 2.35 X10'6 (4.20-5.60); RED CELL DISTRIBUTION WIDTH 19.1 % (11.5-14.5); WHITE BLOOD COUNT 3.9 X10'3 (4.5-11.0)
[2023-02-05 07:02] LABS: ALANINE AMINOTRANSFERASE 44 U/L (12-78); ALBUMIN 1.9 G/DL (3.4-5.0); ALBUMIN/GLOBULIN RATIO 0.7 (1.1-1.5); ALKALINE PHOSPHATASE 178 IU/L (46-116); ANION GAP 3 (8-16); ASPARTATE AMINO TRANSFERASE 32 U/L (10-37); BILIRUBIN,TOTAL 0.3 MG/DL (0.1-1.0); BLOOD UREA NITROGEN 30 MG/DL (7-18); BUN/CREATININE RATIO 71.4 (10.0-20.0); CALCIUM 7.9 MG/DL (8.5-10.1); CHLORIDE 109 MMOL/L (99-107); CREATININE 0.42 MG/DL (0.40-0.90); GLUCOSE 155 MG/DL (70-104); MAGNESIUM 3.2 MG/DL (1.5-2.4); PHOSPHORUS 2.2 MG/DL (2.3-4.5); POTASSIUM 4.1 MMOL/L (3.5-5.1); SODIUM 144 MMOL/L (135-145); TOTAL CARBON DIOXIDE 32.1 MMOL/L (24-32); TOTAL PROTEIN 4.6 G/DL (6.4-8.2); eCRCL 93 ML/MIN; eGFR > 90 ML/MIN
[2023-02-05] MEDS: JUVEN Shake w/Arg/Glut/Ca2+Bmb (Juven 19.3gm) pkt 240ml PO SCH ×2 (07:30→17:30)
[2023-02-05] MEDS: pantoprazole 40mg Tablet.DR PO SCH (07:30)
[2023-02-05] MEDS: ipratropium/albuterol 3ml nebule NEB PRN ×2 (07:38→20:56)
[2023-02-05] MEDS: acetylcysteine 200 MG/ml 4ml vial INH SCH (07:38)
[2023-02-05 07:45] LABS: ANISOCYTOSIS 2+; PLATELET ESTIMATE NORMAL; TOTAL CELLS COUNTED 100
[2023-02-05 07:46] LABS: HYPOCHROMASIA 1+
[2023-02-05 07:48] LABS: HEMATOCRIT 21.4 % (35.0-45.0)
[2023-02-05] MEDS: atorvastatin 10mg tablet PO SCH (08:00)
[2023-02-05] MEDS: nitroGLYCERIN 0.1mg/hour patch TD SCH (08:00)
[2023-02-05] MEDS: K and/or MAG REPLACEMENT MC SCH ×2 (08:00→19:54)
[2023-02-05] MEDS ORDERED: azithromycin 250mg tablet PO SCH (08:00)
[2023-02-05] MEDS: aspirin 81mg, enteric-coated 1 TAB TABLET.DR PO SCH (08:00)
[2023-02-05] MEDS: CefTRIAXone/D5W-Rocephin 1gm 50 ML IV SCH (10:00)
[2023-02-05] MEDS: lisinopril 20mg tablet PO SCH (10:01)
[2023-02-05] MEDS: diltiazem CD 180mg cap (once-daily) PO SCH (10:01)
[2023-02-05] MEDS: guaiFENesin ER 600mg tablet PO SCH ×2 (10:01→19:55)
[2023-02-05] MEDS: methylPREDNISolone sod succ 125mg/2ml vial IV SCH ×2 (10:23→19:37)
[2023-02-05] MEDS ORDERED: magnesium 2GM in 50ml NS 50 ML IV PRN (13:55)
[2023-02-05] MEDS ORDERED: magnesium 4gm in 100ml NS 100 ML IV PRN (13:55)
[2023-02-05] MEDS ORDERED: potassium Cl 40MEQ/1/2NS 520ml 520 ML IV PRN ×2 (13:55)
[2023-02-05] MEDS ORDERED: potassium Cl 20 mEq SR tablet PO PRN ×2 (13:55)
[2023-02-05] MEDS ORDERED: magnesium Cl slow-release 64mg tablet PO PRN (13:55)
[2023-02-05] MEDS ORDERED: Dextrose 10%-water IV solution 1,000 ML IV PRN (13:55)
[2023-02-05] MEDS ORDERED: MVI, adult No.4 with vit. K 10 ML in dextrose 5% water 500ml 500 ML IV SCH ×2 (14:00)
[2023-02-05] MEDS ORDERED: fat emulsion 20% inj. 100 ML IV SCH (14:00)
[2023-02-05 14:44] LABS: MEAN CORPUSCULAR HEMOGLOBIN 29.1 PG (27.0-31.0); MEAN CORPUSCULAR HGB CONC 31.9 g/dL (33.0-36.5); MEAN CORPUSCULAR VOLUME 90.9 FL (78-98); MEAN PLATELET VOLUME 7.6 FL (7.4-10.4); PLATELET COUNT 143 X10'3 (140-440); RED BLOOD COUNT 2.38 X10'6 (4.20-5.60); RED CELL DISTRIBUTION WIDTH 19.2 % (11.5-14.5); WHITE BLOOD COUNT 4.4 X10'3 (4.5-11.0)
[2023-02-05 14:48] LABS: HEMATOCRIT 21.6 % (35.0-45.0); HEMOGLOBIN 6.9 g/dl (12.0-16.0)
[2023-02-05 14:55] LABS: PROTHROMBIN TIME 9.6 SECONDS (9.0-12.0)
[2023-02-05 14:59] LABS: INR 0.9 INR
[2023-02-05] MEDS ORDERED: LidoCAINE 2% Topical Jelly 11mL syringe TOP ONE (18:40)
[2023-02-05 19:18] LABS: OCCULT BLOOD STOOL NEGATIVE (Neg)
[2023-02-05] MEDS: pantoprazole 40 MG vial IV SCH (19:37)
[2023-02-05] MEDS: enoxaparin 40mg/0.4ml syringe SQ SCH (20:00)
[2023-02-05] MEDS ORDERED: insulin regular, human U-100 3ml vial - multi-dose SQ SCH (23:25)
[2023-02-05] MEDS ORDERED: glucagon, human recombinant 1mg kit SUBCUT PRN (23:25)
[2023-02-05] MEDS ORDERED: dextrose 50%-water 50ml dispensing syringe IV PRN ×2 (23:25)
[2023-02-05] MEDS ORDERED: DEXTROSE 15 GM of carb/4 tabs (each vial/BOTTLE has 4 tablets) PO PRN ×2 (23:25)
[2023-02-05] MEDS ORDERED: MESSAGE TO PHARMACY PO ONE (23:25)
[2023-02-06] VITALS (11 sets, daily range): BP systolic 117–139; BP diastolic 46–69; PULSE 64–93; RESP 19–27; TEMP 91–97.6; O2SAT 88–100
[2023-02-06 04:50] LABS: BASOPHILS % (AUTO) 0.4 % (0-1); HEMATOCRIT 37.5 % (35.0-45.0); LYMPHOCYTES # (AUTO) 0.2 X10'3 (1.1-4.8); MEAN CORPUSCULAR VOLUME 86.2 FL (78-98); MEAN PLATELET VOLUME 7.9 FL (7.4-10.4); RED BLOOD COUNT 4.35 X10'6 (4.20-5.60)
[2023-02-06 04:53] LABS: ABSOLUTE RETICS # 84000 /CUMM (23000-93000); EOSINOPHILS % (AUTO) 0 % (0-6); LYMPHOCYTES % (AUTO) 2.6 % (21-51); MEAN CORPUSCULAR HEMOGLOBIN 27.5 PG (27.0-31.0); MONOCYTES % (AUTO) 0.7 % (2-12); NEUTROPHILS # (AUTO) 6.7 X10'3 (1.8-7.7); NEUTROPHILS % (AUTO) 96.3 % (42-75); RED CELL DISTRIBUTION WIDTH 21.4 % (11.5-14.5); RETICULOCYTE % (AUTO) 1.9 % (0.5-1.5)
[2023-02-06 05:05] LABS: ALANINE AMINOTRANSFERASE 49 U/L (12-78); ALBUMIN 1.8 G/DL (3.4-5.0); ALBUMIN/GLOBULIN RATIO 0.6 (1.1-1.5); ALKALINE PHOSPHATASE 153 IU/L (46-116); ANION GAP 3 (8-16); ASPARTATE AMINO TRANSFERASE 30 U/L (10-37); BILIRUBIN,TOTAL 0.3 MG/DL (0.1-1.0); BLOOD UREA NITROGEN 38 MG/DL (7-18); BUN/CREATININE RATIO 54.3 (10.0-20.0); CALCIUM 7.9 MG/DL (8.5-10.1); CHLORIDE 104 MMOL/L (99-107); GLUCOSE 253 MG/DL (70-104); MAGNESIUM 3.1 MG/DL (1.5-2.4); PHOSPHORUS 4.2 MG/DL (2.3-4.5); POTASSIUM 5.4 MMOL/L (3.5-5.1); SODIUM 137 MMOL/L (135-145); TOTAL CARBON DIOXIDE 30.3 MMOL/L (24-32); TOTAL PROTEIN 4.8 G/DL (6.4-8.2); eCRCL 56 ML/MIN; eGFR 85 ML/MIN
[2023-02-06 05:18] LABS: HEMOGLOBIN A1C 6.5 % (4.5-6.2); NUCLEATED RED BLOOD CELLS 8 /100WBC (0-0); PLATELET ESTIMATE DECREASED; TOTAL CELLS COUNTED 100
[2023-02-06 05:19] LABS: ELLIPTOCYTES FEW; HYPOCHROMASIA 1+; SCHISTOCYTES FEW
[2023-02-06 05:21] LABS: BURR CELLS 1+; LARGE PLATELETS FEW; POLYCHROMASIA 1+
[2023-02-06 05:23] LABS: PLATELET COUNT 99 X10'3 (140-440)
[2023-02-06] MEDS: JUVEN Shake w/Arg/Glut/Ca2+Bmb (Juven 19.3gm) pkt 240ml PO SCH (07:30)
[2023-02-06 08:00] LABS: ABG BASE EXCESS -6.4 mmol/L (-2.0-2.0); ABG HCO3 29.4 mmol/L (22.0-26.0); ABG OXYGEN SATURATION 88.3 % (94-97); ABG PCO2 (T) 146.5 mmHg (32.0-45.0); ABG PO2 (T) 57.9 mmHg (75.0-100.0); FHHb 11.6 % (0.0-5.0); FMetHb 0.1 % (0.0-1.5); FO2Hb 87.3 % (94-97); MODE MASK - BIPAP; RESPIRATORY RATE 12 b/min; TOTAL HEMOGLOBIN 12.5 G/dl (12.0-16.0)
[2023-02-06] MEDS: atorvastatin 10mg tablet PO SCH (08:00)
[2023-02-06] MEDS ORDERED: normal saline 1000ml 1,000 ML IV ONE ×2 (08:00)
[2023-02-06] MEDS: guaiFENesin ER 600mg tablet PO SCH (08:00)
[2023-02-06] MEDS ORDERED: azithromycin/NS 500mg/250ml 250 ML IV SCH (08:00)
[2023-02-06] MEDS ORDERED: vancomycin/NS 1 GM ADD-VANTAGE 250 ML IV SCH (08:00)
[2023-02-06] MEDS: diltiazem CD 180mg cap (once-daily) PO SCH (08:00)
[2023-02-06] MEDS ORDERED: hydrocortisone sod succ/PF 100mg/2ml inj. IV SCH (08:00)
[2023-02-06] MEDS: K and/or MAG REPLACEMENT MC SCH (08:00)
[2023-02-06] MEDS: nitroGLYCERIN 0.1mg/hour patch TD SCH (08:00)
[2023-02-06] MEDS ORDERED: piperacillin/tazo 3.375gm/50ml 50 ML IV SCH (08:00)
[2023-02-06] MEDS: lisinopril 20mg tablet PO SCH (08:00)
[2023-02-06] MEDS ORDERED: ringers solution, lacted 1,000 ML IV SCH (08:00)
[2023-02-06] MEDS: pantoprazole 40 MG vial IV SCH (09:10)
[2023-02-06] MEDS: normal saline 1000ml 1,000 ML IV SCH (09:20)
[2023-02-06] MEDS ORDERED: morphine 10mg/ml inj. IV PRN (10:00)
[2023-02-06] MEDS ORDERED: insulin glargine (Lantus) pen - multi-dose SQ SCH (21:00)
[2023-02-07] MEDS ORDERED: VANCOMYCIN LEVEL IV ONE (19:30)
== END 2023-02-06 10:12 | DRG 720 ==
LOC: ER 16:28 → ED HOLD 21:48 → EDBEDREQ 02-01 06:24 → PCU 3S 02-01 08:27
PROVIDERS: ADMIT Family Medicine; ATTEND Family Medicine
PROC: 5A09357 Assistance with Respiratory Ventilation, Less than 24 Consecutive Hours, Continuous Positive Airway Pressure (ICD-10-PCS; 2023-01-31)
PROC: B32T1ZZ Computerized Tomography (CT Scan) of Left Pulmonary Artery using Low Osmolar Contrast (ICD-10-PCS; principal; 2023-02-01)
PROC: B3201ZZ Computerized Tomography (CT Scan) of Thoracic Aorta using Low Osmolar Contrast (ICD-10-PCS; 2023-02-01)
PROC: B32S1ZZ Computerized Tomography (CT Scan) of Right Pulmonary Artery using Low Osmolar Contrast (ICD-10-PCS; 2023-02-01)
PROC: 5A09357 Assistance with Respiratory Ventilation, Less than 24 Consecutive Hours, Continuous Positive Airway Pressure (ICD-10-PCS; 2023-02-01)
PROC: 5A0935A Assistance with Respiratory Ventilation, Less than 24 Consecutive Hours, High Flow/Velocity Cannula (ICD-10-PCS; 2023-02-01)
PROC: 05HC33Z Insertion of Infusion Device into Left Basilic Vein, Percutaneous Approach (ICD-10-PCS; 2023-02-01)
PROC: B54NZZA Ultrasonography of Left Upper Extremity Veins, Guidance (ICD-10-PCS; 2023-02-01)
PROC: 5A0935A Assistance with Respiratory Ventilation, Less than 24 Consecutive Hours, High Flow/Velocity Cannula (ICD-10-PCS; 2023-02-02)
PROC: 5A09357 Assistance with Respiratory Ventilation, Less than 24 Consecutive Hours, Continuous Positive Airway Pressure (ICD-10-PCS; 2023-02-03)
PROC: 5A0935A Assistance with Respiratory Ventilation, Less than 24 Consecutive Hours, High Flow/Velocity Cannula (ICD-10-PCS; 2023-02-03)
PROC: 5A09357 Assistance with Respiratory Ventilation, Less than 24 Consecutive Hours, Continuous Positive Airway Pressure (ICD-10-PCS; 2023-02-04)
PROC: 5A0935A Assistance with Respiratory Ventilation, Less than 24 Consecutive Hours, High Flow/Velocity Cannula (ICD-10-PCS; 2023-02-04)
PROC: 30233N1 Transfusion of Nonautologous Red Blood Cells into Peripheral Vein, Percutaneous Approach (ICD-10-PCS; 2023-02-05)
PROC: 5A09357 Assistance with Respiratory Ventilation, Less than 24 Consecutive Hours, Continuous Positive Airway Pressure (ICD-10-PCS; 2023-02-05)
DX: A41.9 Sepsis, unspecified organism (principal); J96.21 Acute and chronic respiratory failure with hypoxia; I21.A1 Myocardial infarction type 2; I50.33 Acute on chronic diastolic (congestive) heart failure; L89.153 Pressure ulcer of sacral region, stage 3; E43 Unspecified severe protein-calorie malnutrition; J18.9 Pneumonia, unspecified organism; E88.09 Other disorders of plasma-protein metabolism, not elsewhere classified; D62 Acute posthemorrhagic anemia; I27.81 Cor pulmonale (chronic); G89.4 Chronic pain syndrome; R65.20 Severe sepsis without septic shock; I11.0 Hypertensive heart disease with heart failure; E78.00 Pure hypercholesterolemia, unspecified; R26.9 Unspecified abnormalities of gait and mobility; J96.22 Acute and chronic respiratory failure with hypercapnia; I25.10 Atherosclerotic heart disease of native coronary artery without angina pectoris; Z20.822 Contact with and (suspected) exposure to COVID-19; I16.1 Hypertensive emergency; B99.8 Other infectious disease; J43.9 Emphysema, unspecified; Z90.710 Acquired absence of both cervix and uterus; Z90.49 Acquired absence of other specified parts of digestive tract; Z74.01 Bed confinement status; Z87.11 Personal history of peptic ulcer disease; Z72.0 Tobacco use; Z88.2 Allergy status to sulfonamides; Z99.81 Dependence on supplemental oxygen; Z79.899 Other long term (current) drug therapy; Z59.00 Homelessness unspecified; Z56.0 Unemployment, unspecified; Z51.5 Encounter for palliative care; Z79.52 Long term (current) use of systemic steroids; Z68.1 Body mass index [BMI] 19.9 or less, adult
CPT/HCPCS: 36410; 36415; 36430; 36600; 71045; 71275; 76937; 80053; 80305; 82272; 82800; 82803; 82948; 83036; 83605; 83735; 83880; 84100; 84484; 85007; 85018; 85025; 85027; 85045; 85379; 85610; 85730; 86885; 86900; 86901; 86920; 87040; 87081; 87502; 87503; 87811; 92508; 92616; 94640; 94660; 94664; 94668; 94760; 97110; 97161; 97530; 97535; 99285; A4615; A6212; A6213; A6223; A6250; A6253; A6260; A6266; A6446; A6449; C1751; C9113; G0378; J0360; J0456; J0696; J1200; J1644; J1650; J1720; J1815; J2270; J2405; J2543; J2930; J3475; J3490; J7030; J7040; J7060; J7070; P9016; P9045; Q9967